=== PATIENT | female | born 1955 | race Caucasian/White ===

== ENCOUNTER 2019-02-23 14:38 | Outpatient (CLI) | payer MEDICARE, BC, SELFPAY ==
--- NOTE | 2019-02-23 14:51 | XR_ITS ---
WS: [id number] LATERAL CERVICAL SPINE: 3 view. Lateral radiographs are performed in upright neutral, flexion and extension to the patient's toleranc e. HISTORY: CERVICALGIA COMPARISON: None available. Normal cervical alignment. Moderate disc space narrowing at C4-5, C5-6 and C6-7. Moderate size osteop hytes extend anterior and posterior from C4 through C7. With flexion and extension there is no instab ility. Less than 2 mm retrolisthesis during extension of C5. Largest osteophyte extends posteriorly b y 3.8 mm from C4. XR/XR cervical spine fl/ex [id number] IMPRESSION: 1. Moderate spondylosis from C4 through C7. 2. No flexion or extension instability.
== END 2019-02-23 14:39 | disposition home or self-care (01) ==
LOC: RADWPI 14:44
PROVIDERS: Family Provider Family Medicine; PCP Family Medicine; Referring Provider Family Medicine; Visit Provider Nurse Practitioner
DX: M47.892 Other spondylosis, cervical region (principal); M54.2 Cervicalgia
CPT/HCPCS: 72040

== ENCOUNTER → 2019-03-09 10:10 | Outpatient (BNVA) | payer MEDICARE, BC, SELFPAY | PROVIDERS: Family Provider Family Medicine; PCP Family Medicine; Visit Provider Family Medicine | DX: E03.9 Hypothyroidism, unspecified (principal) | CPT/HCPCS: 84443 ==

== ENCOUNTER → 2019-03-31 13:52 | Outpatient (BNVA) | payer MEDICARE, BC, SELFPAY | PROVIDERS: Family Provider Family Medicine; PCP Family Medicine; Referring Provider Licensed Practical Nurse; Visit Provider Psychiatry & Neurology Neurology | DX: M54.2 Cervicalgia (principal); M79.601 Pain in right arm; M79.602 Pain in left arm; Z87.891 Personal history of nicotine dependence | CPT/HCPCS: 95886; 95910 ==

== ENCOUNTER 2019-04-14 09:41 | Outpatient (CLI) | payer MEDICARE, BC, SELFPAY ==
--- NOTE | 2019-04-14 10:00 | CT_ITS ---
WS: [id number] CT HEAD TECHNIQUE: Noncontrast CT of the head obtained from the skullbase to the vertex. CLINICAL INFORMATION: Nodule COMPARISON: None. DLP: 1058.[address] scans at [facility] use at least one of these dose optimization techniques: automat ed exposure control; mA and/or kV adjustment per patient size (includes targeted exams where dose is matched to clinical indication); or iterative reconstruction. FINDINGS: In the area of palpable concern, posterior to the left ear, there is a small subcutaneous f ocus of calcification measuring 3.8 mm which is well-circumscribed and has a benign appearance. No ot her suspicious abnormalities in this area. No evidence of intracranial hemorrhage or mass effect. Ventricular system and basal cisterns are perry nt. Mild small vessel changes with mild parenchymal volume loss. No extra-axial fluid collections. No evidence of mass or mass effect. Normal cross-white differentiation. Paranasal sinuses and mastoid air cells are well aerated. .Normal visualized soft tissues. CT/CT head wo con* [id number] IMPRESSION: 1. No evidence of intracranial hemorrhage or mass effect. 2. Mild small vessel changes with mild parenchymal volume loss. 3. Paranasal sinuses and mastoid air cells are well aerated. 4. Small 3.8 mm incidental focus of calcification in the area of palpable conc michelle posterior to the left ear.
--- NOTE | 2019-04-14 10:00 | IR_ITS ---
WS: [id number] MYELOGRAM CERVICAL SPINE Fluoroscopic guided cervical myelogram CLINICAL INFORMATION: Neck pain COMPARISON: None. TECHNIQUE: The procedure, including risks, benefits, and complications, were discussed with the patie nt who agreed to proceed. A timeout was performed to confirm correct patient, procedure, and site. Using sterile technique, the patient was prepped and draped in the usual sterile fashion. After admin istration of local anesthesia using 1% preservative-free lidocaine and using fluoroscopic guidance, a 22-gauge spinal needle was advanced into the subarachnoid space at the L4-5 level. Subsequently 13 c c of Omnipaque 300 was administered into the thecal sac. The needle was removed and hemostasis was ac hieved. Subsequently the table was tilted down and contrast flowed freely into the cervical spine. Sp ot fluoroscopic images were obtained. FLUOROSCOPIC TIME: 0.6 minutes. Spot fluoroscopic images demonstrate straightening of the normal cervical lordosis. Mild disc space n arrowing C4-C5 C5-C6 and C6-C7. Normal C1-C2 articulation. No instability on flexion-extension. Mild hypertrophic changes at C4-C6. Please see CT myelogram report for additional detail. IR/IR myelogram [place] cervical [id number] IMPRESSION: 1. Uncomplicated cervical myelogram. 2. Mild spondylitic changes worse at C4-C6. 3. No instability on flexion extension.
[2019-04-14] MEDS: iohexol 300 mg/mL 50 mL Btl INTRATHECA (11:05)
--- NOTE | 2019-04-14 11:30 | CT_ITS ---
WS: [id number] CT CERVICAL MYELOGRAM TECHNIQUE: CT of the cervical spine coronal and sagittal reformatted images post intrathecal administ ration of contrast. CLINICAL INFORMATION: Neck pain. Limited ROM COMPARISON: MRI February 23, 2019 DLP: [id number] scans at [facility] use at least one of these dose optimization techniques: automat ed exposure control; mA and/or kV adjustment per patient size (includes targeted exams where dose is matched to clinical indication); or iterative reconstruction. FINDINGS: Mild spondylitic changes cervical spine. Straightening of the normal cervical lordosis. Disc osteophy te complexes worse at C4-C6. C2-C3: Mild right and no significant left foraminal narrowing. Spinal canal is patent. C3-C4: Mild disc osteophyte ridging. Mild right and no significant left foraminal narrowing. Mild fac et arthropathy. Spinal canal is patent. C4-C5: Disc osteophyte complex with endplate ridging. Mild central canal stenosis. Moderate left grea ter than right bony foraminal narrowing. C5-C6: Disc osteophyte complex with endplate ridging. Mild central canal stenosis. Moderate bilateral bony foraminal narrowing. C6-C7: Disc osteophyte complex with endplate ridging. Mild central canal stenosis. Moderate to severe bilateral bony foraminal narrowing. C7-T1: Mild left bony foraminal narrowing. Right foramen is patent. Spinal canal is patent. Mastoid air cells well aerated. CT/CT cervical spine w con [id number] IMPRESSION: 1. Straightening of the normal cervical lordosis. Mild spondylitic changes. 2. Mild central canal stenosis C4-C5 C5-C6 and C6-C7 due to disc osteophyte co mplexes with slight effacement of ventral thecal sac. 3. Multilevel bony foraminal narrowing worse at left C4-C5, bilateral C5-C6, a nd bilateral C6-7. This is moderate to severe at C6-7. 4. Mild left C7-T1 bony foraminal narrowing.
== END 2019-04-14 09:42 | disposition home or self-care (01) ==
LOC: RADWPI 09:46
PROVIDERS: Family Provider Family Medicine; PCP Family Medicine; Visit Provider Licensed Practical Nurse
DX: M50.020 Cervical disc disorder with myelopathy, mid-cervical region, unspecified level (principal); R22.9 Localized swelling, mass and lump, unspecified; M54.2 Cervicalgia; M48.02 Spinal stenosis, cervical region; M47.892 Other spondylosis, cervical region
CPT/HCPCS: 62302; 70450; 72040; 72126; J2001

== ENCOUNTER → 2019-05-04 12:12 | Outpatient (BNVA) | payer MEDICARE, BC, SELFPAY | PROVIDERS: Family Provider Family Medicine; PCP Family Medicine; Visit Provider Family Medicine | DX: E03.9 Hypothyroidism, unspecified (principal) | CPT/HCPCS: 84439; 84443 ==

== ENCOUNTER 2019-05-06 08:33 | Outpatient (CLI) | payer MEDICARE, BC, SELFPAY ==
--- NOTE | 2019-05-06 08:41 | NM_ITS ---
WS: [id number] NUCLEAR MEDICINE WHOLE BODY BONE SCAN HISTORY: Suspicious skull lesions. Suboccipital skull irregularities COMPARISON: 04/14/[address] TECHNIQUE: The patient was injected with 25.6 mCi of Technetium 99m HDP and serial whole-body scintig eloina have been performed with anterior and posterior images. Large cstqn-ey-yflf imaging over the sku ll. Normal uptake within the skull. Mild hyperostosis frontalis involving the frontal bone. The tiny calc ific densities in the soft tissues posterior to the LEFT occipital bone are not positive. Mild increased uptake in the RIGHT T9 facet joint from arthritis. Bilateral AC joint and glenohumeral joint arthritis. Mild arthritis at the knees and ankles. There is normal soft tissue uptake in the r enal outline. NM/NM bone scan whole body* [id number] IMPRESSION: 1. No metastatic disease. 2. No abnormality noted in the suboccipital region.
== END 2019-05-06 08:34 | disposition home or self-care (01) ==
LOC: RAD 08:38
PROVIDERS: Family Provider Family Medicine; PCP Family Medicine; Visit Provider Licensed Practical Nurse
DX: M89.9 Disorder of bone, unspecified (principal)
CPT/HCPCS: 78306; A9561

== ENCOUNTER → 2019-08-31 10:56 | Outpatient (BNVA) | payer MEDICARE, BC, SELFPAY | PROVIDERS: Family Provider Family Medicine; PCP Family Medicine; Visit Provider Family Medicine | DX: E03.9 Hypothyroidism, unspecified (principal) | CPT/HCPCS: 84443 ==

== ENCOUNTER 2019-09-13 14:21 | Outpatient (CLI) | payer MEDICARE, BC, SELFPAY ==
--- NOTE | 2019-09-13 14:30 | MM_ITS ---
WS: [id number] BILATERAL SCREENING DIGITAL MAMMOGRAM WITH CAD HISTORY: SCREENING COMPARISON: 07/20/2018 and 06/29/2017 Bilateral CC and MLO views submitted. Computer aided detection analyzed. Breast composition: There are scattered areas of fibroglandular density. No suspicious masses, microc alcifications or architectural distortion. MM/[place] [id number] IMPRESSION: BI-RADS: 1-Negative FOLLOW UP: 1 Year Follow-up
== END 2019-09-13 14:22 | disposition home or self-care (01) ==
LOC: RADSHAW 14:24
PROVIDERS: PCP Family Medicine; Visit Provider Family Medicine
DX: Z12.31 Encounter for screening mammogram for malignant neoplasm of breast (principal)
CPT/HCPCS: 77067

== ENCOUNTER → 2019-10-05 11:02 | Outpatient (BNVA) | payer MEDICARE, BC, SELFPAY | PROVIDERS: PCP Family Medicine; Visit Provider Urology | DX: N39.0 Urinary tract infection, site not specified (principal) | CPT/HCPCS: 81001 ==

== ENCOUNTER → 2019-10-26 08:47 | Outpatient (BNVA) | payer MEDICARE, BC, SELFPAY | PROVIDERS: PCP Family Medicine; Referring Provider Family Medicine; Visit Provider Dermatology | DX: L21.9 Seborrheic dermatitis, unspecified (principal); L82.1 Other seborrheic keratosis; L81.4 Other melanin hyperpigmentation; D22.9 Melanocytic nevi, unspecified; L57.0 Actinic keratosis; N39.0 Urinary tract infection, site not specified | CPT/HCPCS: 17000; 17003; 99203; 99204 ==

== ENCOUNTER → 2019-11-29 09:06 | Outpatient (BNVA) | payer MEDICARE, BC, SELFPAY | PROVIDERS: PCP Family Medicine; Visit Provider Family Medicine | DX: E78.5 Hyperlipidemia, unspecified (principal); G25.0 Essential tremor | CPT/HCPCS: 80053; 80061; 85025 ==

== ENCOUNTER 2019-12-20 20:00 | Outpatient (CLI) | payer MEDICARE, BC, SELFPAY | END 2019-12-20 20:01 | disposition home or self-care (01) | LOC: SLEEP 12-21 09:19 | PROVIDERS: PCP Family Medicine; Visit Provider Family Medicine | DX: G47.33 Obstructive sleep apnea (adult) (pediatric) (principal) | CPT/HCPCS: 95810 ==

== ENCOUNTER 2020-01-19 20:00 | Outpatient (CLI) | payer MEDICARE, BC, SELFPAY | END 2020-01-19 20:01 | disposition home or self-care (01) | LOC: SLEEP 01-20 10:03 | PROVIDERS: PCP Family Medicine; Visit Provider Family Medicine | DX: G47.33 Obstructive sleep apnea (adult) (pediatric) (principal) | CPT/HCPCS: 95811 ==

== ENCOUNTER → 2020-02-25 10:43 | Outpatient (BNVA) | payer MEDICARE, BC, SELFPAY | PROVIDERS: PCP Family Medicine; Visit Provider Nurse Practitioner Family | DX: Z20.828 Contact with and (suspected) exposure to other viral communicable diseases (principal); J06.9 Acute upper respiratory infection, unspecified | CPT/HCPCS: 87635 ==

== ENCOUNTER 2020-04-28 15:31 | Outpatient (CLI) | payer MEDICARE, BC, SELFPAY ==
--- NOTE | 2020-04-28 16:02 | MR_ITS ---
WS: [id number] MRI CERVICAL SPINE NONCONTRAST TECHNIQUE: Sagittal T1, T2 and STIR imaging. Axial T2, gradient, and fiesta imaging. CLINICAL INFORMATION: C-SPINE STENOSIS COMPARISON: CT myelogram April 14, 2019 FINDINGS: Straightening of the normal cervical lordosis. Cord signal is normal. Moderate spondylitic changes ce rvical spine. Cord signal is normal. C2-C3: Mild right and no significant left foraminal narrowing. Spinal canal is patent. C3-C4: Mild disc osteophytic ridging. Mild facet arthropathy. Tiny central protrusion. Mild right gre ater than left foraminal narrowing. Mild facet arthropathy. C4-C5: Disc osteophyte complex with endplate ridging. Mild to moderate central canal stenosis. Modera te to severe left and mild right bony foraminal narrowing. Mild facet arthropathy. C5-C6: Disc osteophyte complex with endplate ridging. Mild to moderate central canal stenosis. Modera te to severe bilateral left greater than right foraminal narrowing. Moderate facet arthropathy. C6-C7: Disc osteophyte complex with endplate ridging. Slight contact of the cervical cord with modera te central canal stenosis. Severe bilateral bony foraminal narrowing left greater than right. Uncover tebral joint hypertrophy. C7-T1: No significant disc bulging. Mild left and no right foraminal narrowing. Spinal canal is perry nt. Findings are not significantly changed since the prior myelogram MR/MR cervical spin wo con* [id number] IMPRESSION: 1. Straightening of the normal cervical lordosis with moderate spondylitic lópez nges. Cord signal is normal. 2. Mild to moderate central canal stenosis due to disc osteophyte protrusions at C4-C5, C5-C6, C6-C7 with slight indentation on the cervical cord at these le vels. 3. Moderate to severe bony foraminal narrowing worse at left C4-C5, bilateral C5-C6 worse in the left, and left C6-7 4. Mild left C7-T1 bony foraminal narrowing.
== END 2020-04-28 15:32 | disposition home or self-care (01) ==
LOC: RADSHAW 15:37
PROVIDERS: PCP Family Medicine; Visit Provider Anesthesiology Pain Medicine
DX: M48.02 Spinal stenosis, cervical region (principal); M25.78 Osteophyte, vertebrae; E03.9 Hypothyroidism, unspecified; E78.5 Hyperlipidemia, unspecified; Z83.3 Family history of diabetes mellitus
CPT/HCPCS: 72141; 80053; 80061; 83036; 84443

== ENCOUNTER 2020-05-19 14:56 | Emergency (ER) | payer MEDICARE, BC, SELFPAY ==
[2020-05-19 15:00] VITALS: BP 163/85; PULSE 104; RESP 18; TEMP 36.4; O2SAT 96; BMI 28.5
[2020-05-19 15:12] VITALS: BP 163/85; PULSE 106; RESP 18; O2SAT 96
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
--- NOTE | 2020-05-19 15:29 | XR_ITS ---
WS: [id number] Left knee, 3 views, 05/19/2020 Clinical Data: pain Comparison: None. Findings: No fractures or dislocations are seen. There is joint space narrowing of the medial and lateral joint compartments. There is spurring of the patella. The patella is intact. The soft tissues are unremark able. XR/XR knee LT 3V* [id number] Impression: Osteoarthritis of all the joint compartments of the left knee.
[2020-05-19 15:42] VITALS: BP 143/81; PULSE 74; RESP 18; O2SAT 97
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
--- NOTE | 2020-05-19 16:00 | XR_ITS ---
WS: [id number] Left arm and humerus, 2 views, 05/19/2020 Clinical Data: pain Comparison: None. Findings: No fractures or dislocations are seen. The shaft of the humerus is intact. XR/[place] [id number] Impression: Negative left arm and humerus.
[2020-05-19] MEDS: iohexol 300 mg/mL 100 mL Btl IV (16:10)
[2020-05-19 16:34] LABS: Basophils % 0.4 %; Eosinophils # 0.1 10^3/uL (0.0-0.8); Eosinophils % 0.6 %; Hematocrit 44.5 % (37.0-47.0); Hemoglobin 14.3 g/dL (11.5-15.3); Lymphocytes # 1.7 10^3/uL (0.8-4.8); Lymphocytes % 21.1 %; Mean Corpuscular HGB Conc 32.1 g/dL (30.0-36.0); Mean Corpuscular Hemoglobin 29.7 pg (28.0-34.0); Mean Corpuscular Volume 92.3 fL (81-99); Mean Platelet Volume 10.7 fL (7.4-10.4); Monocytes # 0.7 10^3/uL (0.2-0.9); Monocytes % 8.7 %; Neutrophils # 5.57 10^3/uL (1.8-7.7); Neutrophils % 68.8 %; Nucleated Red Blood Cells % 0 %; Platelet Count 215 10^3/cmm (130-400); Red Blood Count 4.82 10^6/uL (4.1-5.3); Red Cell Distribution Width 13.7 % (12.1-15.1); White Blood Count 8.1 10^3/uL (4.0-10.0)
[2020-05-19 17:18] LABS: Alanine Aminotransferase 23 U/L (0-33); Albumin Level 3.9 g/dL (3.5-5.2); Alkaline Phosphatase 100 IU/L (35-105); Anion Gap 13.3 (5-19); Aspartate Amino Transferase 19 U/L (0-32); Blood Urea Nitrogen 18 mg/dL (8-23); Calcium 8.3 mg/dL (8.5-10.5); Carbon Dioxide 24 mmol/L (22-29); Chloride 105 mmol/L (98-107); Globulin 2.1 g/dL (1.3-4.6); Glucose 95 mg/dL (65-115); Osmolality Calculated 288 mOsm/kg (285-295); Potassium 4.3 mmol/L (3.5-5.1); Sodium 138 mmol/L (136-145); Total Bilirubin 0.4 mg/dL (0.15-1.2)
[2020-05-19 17:19] LABS: Add Urine Microscopic? NO; Charge for UA Resulting for Rev
[2020-05-19 17:28] LABS: Bilirubin Urine Neg (Negative); Blood Urine Neg (Negative); Glucose Urine UA Norm (Normal); Ketones Urine 1+ (Negative); Leukocyte Esterase Urine Negative (Negative); Nitrate Urine Negative (Negative); Protein Urine Neg (Negative); Specific Gravity, Urine 1.015 (1.005-1.030); Urine Appearance Clear (CLEAR); Urine Color Yellow (Yellow); Urobilinogen Urine Norm (Negative); pH Urine 5 (5-7)
[2020-05-19 17:43] VITALS: BP 143/81; PULSE 104; RESP 18; O2SAT 96
== END 2020-05-19 17:45 | disposition home or self-care (01) ==
PROVIDERS: Emergency Provider Family Medicine; PCP Family Medicine
DX: M79.10 Myalgia, unspecified site (principal); V89.2XXA Person injured in unspecified motor-vehicle accident, traffic, initial encounter; W22.12XA Striking against or struck by front passenger side automobile airbag, initial encounter; Z87.891 Personal history of nicotine dependence
CPT/HCPCS: 70450; 71260; 72125; 73060; 73562; 74177; 80053; 81003; 85025; 99284; Q9967

== ENCOUNTER 2020-06-15 06:00 | Outpatient (RCR) | payer MEDICARE, BC, SELFPAY | END 2020-07-10 23:59 | disposition home or self-care (01) | LOC: SPT 06:00 | PROVIDERS: PCP Family Medicine; Referring Provider Anesthesiology Pain Medicine; Visit Provider Anesthesiology Pain Medicine | DX: M47.812 Spondylosis without myelopathy or radiculopathy, cervical region (principal); M43.12 Spondylolisthesis, cervical region; M79.12 Myalgia of auxiliary muscles, head and neck; M48.02 Spinal stenosis, cervical region; M50.10 Cervical disc disorder with radiculopathy, unspecified cervical region; M54.2 Cervicalgia | CPT/HCPCS: 73630; 97032; 97110; 97161 ==

== ENCOUNTER → 2020-06-26 14:54 | Outpatient (BNVA) | payer MEDICARE, BC, SELFPAY | PROVIDERS: PCP Family Medicine; Visit Provider Family Medicine | DX: E03.9 Hypothyroidism, unspecified (principal); M54.5 Low back pain | CPT/HCPCS: 84443 ==

== ENCOUNTER → 2020-07-19 13:47 | Outpatient (BNVA) | payer MEDICARE, BC, SELFPAY | PROVIDERS: PCP Family Medicine; Visit Provider Family Medicine | DX: E03.9 Hypothyroidism, unspecified (principal) | CPT/HCPCS: 84439; 84443 ==

== ENCOUNTER 2020-08-22 08:31 | Outpatient (CLI) | payer MEDICARE, BC, SELFPAY ==
--- NOTE | 2020-08-22 08:37 | XRR_ITS ---
PROCEDURE INFORMATION: Exam: XR Abdomen Exam date and time: 08/22/2020 8:37 AM Age: 65 years old Clinical indication: Abdominal pain; Flank; Right; Additional info: Flank pain TECHNIQUE: Imaging protocol: XR of the abdomen. Views: Frontal supine view of the abdomen. 1 View. COMPARISON: CT chest abd pel w con* 05/19/2020 4:16 PM FINDINGS: Gastrointestinal tract: Normal. No bowel dilation. Organs: Clips are present from cholecystectomy. There is a surgical clip in the right side of the pelvis. Multiple phleboliths are present in the pelvis. No renal stones are seen. Bones/joints: Chronic degenerative changes are present in the spine with sclerosis and small osteophytes. Bones/joints: Unremarkable. XR/XR KUB [id number] IMPRESSION: 1. No acute abnormality. 2. 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
== END 2020-08-22 08:32 | disposition home or self-care (01) ==
PROVIDERS: PCP Family Medicine; Visit Provider Urology
DX: R10.9 Unspecified abdominal pain (principal); M19.90 Unspecified osteoarthritis, unspecified site
CPT/HCPCS: 74018; 81003

== ENCOUNTER 2020-10-18 10:43 | Outpatient (CLI) | payer MEDICARE, BC, SELFPAY ==
--- NOTE | 2020-10-18 10:53 | MM_ITS ---
WS: [id number] BILATERAL DIGITAL SCREENING MAMMOGRAPHY WITH CAD CLINICAL INFORMATION: SCREENING HISTORY: Screening mammogram. No current complaints. COMPARISON: September 13, 2019 TECHNIQUE: Bilateral CC and MLO views. FINDINGS: Scattered fibroglandular densities bilaterally. No suspicious focal mass, asymmetry, calcifications, or architectural distortion. No evidence of malignancy. MM/[place] [id number] IMPRESSION: BI-RADS: 1-Negative FOLLOW UP: 1 Year Follow-up Recommend return to annual screening mammography.
== END 2020-10-18 10:44 | disposition home or self-care (01) ==
LOC: RADSHAW 10:48
PROVIDERS: PCP Family Medicine; Visit Provider Family Medicine
DX: Z12.31 Encounter for screening mammogram for malignant neoplasm of breast (principal)
CPT/HCPCS: 77067

== ENCOUNTER → 2020-11-03 10:50 | Outpatient (BNVA) | payer MEDICARE, BC, SELFPAY | PROVIDERS: PCP Family Medicine; Visit Provider Family Medicine | DX: E03.9 Hypothyroidism, unspecified (principal); K29.70 Gastritis, unspecified, without bleeding; R93.3 Abnormal findings on diagnostic imaging of other parts of digestive tract | CPT/HCPCS: 84439; 84443 ==

== ENCOUNTER → 2020-11-16 10:35 | Outpatient (BNVA) | payer MEDICARE, BC, SELFPAY | PROVIDERS: PCP Family Medicine; Referring Provider Family Medicine; Visit Provider Surgery | DX: K29.70 Gastritis, unspecified, without bleeding (principal); Z86.010 Personal history of colon polyps; R93.3 Abnormal findings on diagnostic imaging of other parts of digestive tract; Z20.822 Contact with and (suspected) exposure to COVID-19 | CPT/HCPCS: 87635 ==

== ENCOUNTER 2020-11-22 05:51 | Day surgery (SDC) | payer MEDICARE, BC, SELFPAY ==
[2020-11-20 09:53] VITALS: BMI 29.2
[2020-11-22 06:07] VITALS: BP 158/77; PULSE 72; RESP 16; TEMP 36.1; O2SAT 95
--- NOTE | 2020-11-22 06:18 | W.PM.OPSUD ---
Surgery/Procedure H&P Update DATE OF PROCEDURE: November 22, 2020 DATE H&P PERFORMED: 11/16/20 H&P UPDATE INFORMATION: I have reviewed H&P completed within last 30 days, I have examined patient prior to procedure and No changes to prior documentation PREOP DIAGNOSIS: Epigastric pain and history of colon polyps PRIMARY INDICATION FOR PROCEDURE: The same PLANNED PROCEDURE: Operation Date: 11/22/20 07:00 Proposed Procedures p EGD/Colon 82433 K29.70(Not Applicable) - Sudheer Roach MD s Colonoscopy 20190 Z86.010(Not Applicable) - Sudheer Roach MD
[2020-11-22] MEDS: sodium chloride 0.9% 1,000 ML 30 ML IV (06:21)
--- NOTE | 2020-11-22 06:44 | ANES.PREANE2 ---
Pre-Anesthetic Assessment Pre-Anesthetic Assessment: Height/Weight: Height 1.8 m Weight 95.254 kg Temp Pulse Resp BP Pulse Ox 97 F L 72 16 158/77 95 11/22/20 06:07 11/22/20 06:07 11/22/20 06:07 11/22/20 06:07 11/22/20 06:07 Preop Diagnosis: Epigastric pain and history of colon polyps Proposed Procedure: Operation Date: 11/22/20 07:00 Proposed Procedures p EGD/Colon 70314 K29.70(Not Applicable) - Sudheer Roach MD s Colonoscopy 55240 Z86.010(Not Applicable) - Sudheer Roach MD Was Beta Penny taken within 24 hours: N/A Last intake: Intake Last Liquid Date 11/21/20 Last Liquid Time 20:00 Last Solid Date 11/20/20 Last Solid Time 18:00 Social: Social History: Alcohol and No tobacco Exam: Pre-Anes Outpt Exam: alert, oriented x 3 and clear to auscultation bilaterally Airway: Submandibular: WNL Cervical ROM: Other MP: 2 Dentition: Full History/ROS: No significant history except as noted Pulmonary: Pulmonary: Sleep apnea CV/HEM: CV/HEM: Arrythmia (PVCs) : : None reported Hepatic: Hepatic: None reported GI: GI: GERD Metabolic: Metabolic: Thyroid Musc/skel: Musc/skel: Lower Back Pain Neuropsych: Neuropsych: Anxiety Anesthetic Plan: ASA status: 2 Risk of > 500 ml blood loss (7ml/kg in children): No Meds/Allergies Current Medications: Current Medications Generic Name Dose Route Start Last Admin Trade Name Freq PRN Reason Stop Dose Admin Sodium Chloride 1,000 mls @ 30 ml s/hr 11/22/20 06:00 11/22/20 06:21 Sodium Chloride 0.9% IV 30 mls/hr .Q24H PAIGE Administration PFSH Anesthesia PFSH: Medical History Cervical disc disorder with myelopathy of mid-cervical region History of cataract bilateral Mass KRISTIAN (obstructive sleep apnea) Recurrent UTI Skull lesion Spinal stenosis, cervical region Spondylolisthesis of cervical region Stenosis of cervical spine with myelopathy Surgical History History of appendectomy History of cholecystectomy performed in [place], [place] History of hernia repair 2x History of knee surgery History of laminectomy L5-S1 decompression performed in [place], [place] 1991 and [facility] 1989 Family History Father Heart disease Mother Diabetes Sister Polymyositis Diabetes Brother Heart disease Social History Alcohol intake: current Alcohol intake frequency: holidays/special occasions only Household members: spouse Marital status: Current occupational status: retired History of recent travel: No Data Anesthesia Cardiac Studies: No Data to Display
[2020-11-22 07:27] VITALS: BP 126/84; PULSE 65; RESP 16; TEMP 36.2; O2SAT 96
[2020-11-22 07:38] LABS: Glucose Point of Care 172 mg/dL (70-110)
[2020-11-22 07:41] VITALS: BP 131/75; PULSE 61; RESP 16; O2SAT 96
--- NOTE | 2020-11-22 08:48 | ANE.PACU2 ---
Inpatient post-anesthesia follow up: Airway intact: Yes Vital signs: Temperature 97.2 F Pulse Rate 61 Respiratory Rate 16 Blood Pressure 131/75 Pulse Oximetry 96 Oxygen Delivery Me thod Room Air Oxygen Flow Rate Fraction of Inspir ed Oxygen Hydration adequate: Yes Nausea and vomiting: No Mental status: Baseline
[2020-11-23 11:23] LABS: H. Pylori / CLO Test Negative
== END 2020-11-22 08:05 | disposition home or self-care (01) ==
PROVIDERS: PCP Family Medicine; Visit Provider Surgery
PROC: 0DJ08ZZ Inspection of Upper Intestinal Tract, Via Natural or Artificial Opening Endoscopic (ICD-10-PCS; CPT 43235; principal; 2020-11-22 07:00)
PROC: 0DJD8ZZ Inspection of Lower Intestinal Tract, Via Natural or Artificial Opening Endoscopic (ICD-10-PCS; CPT 45378; 2020-11-22 07:00)
DX: R10.13 Epigastric pain (principal); K29.70 Gastritis, unspecified, without bleeding; Z86.010 Personal history of colon polyps; G47.33 Obstructive sleep apnea (adult) (pediatric); K21.00 Gastro-esophageal reflux disease with esophagitis, without bleeding; F41.9 Anxiety disorder, unspecified; Z82.49 Family history of ischemic heart disease and other diseases of the circulatory system; Z83.3 Family history of diabetes mellitus
CPT/HCPCS: 36416; 43239; 45378; 82962; 87077; 96360; 96361; J2704; J7030

== ENCOUNTER → 2021-01-11 09:39 | Outpatient (BNVA) | payer MEDICARE, BC, SELFPAY | PROVIDERS: PCP Family Medicine; Visit Provider Nurse Practitioner Family | DX: Z20.822 Contact with and (suspected) exposure to COVID-19 (principal) | CPT/HCPCS: 87635 ==

== ENCOUNTER → 2021-04-17 09:14 | Outpatient (BNVA) | payer MEDICARE, BC, SELFPAY | PROVIDERS: PCP Family Medicine; Visit Provider Orthopaedic Surgery | DX: M54.2 Cervicalgia (principal); M47.892 Other spondylosis, cervical region | CPT/HCPCS: 72050 ==

== ENCOUNTER → 2021-04-25 10:58 | Outpatient (BNVA) | payer MEDICARE, BC, SELFPAY | PROVIDERS: PCP Family Medicine; Visit Provider Internal Medicine Gastroenterology | DX: Z01.812 Encounter for preprocedural laboratory examination (principal); Z20.822 Contact with and (suspected) exposure to COVID-19 | CPT/HCPCS: 87635 ==

== ENCOUNTER 2021-05-03 06:00 | Outpatient (RCR) | payer MEDICARE, BC, SELFPAY | END 2021-05-10 23:59 | disposition home or self-care (01) | LOC: SPT 06:00 | PROVIDERS: PCP Family Medicine; Referring Provider Orthopaedic Surgery; Visit Provider Orthopaedic Surgery | DX: M54.2 Cervicalgia (principal); G89.29 Other chronic pain | CPT/HCPCS: 80053; 80061; 82306; 82607; 84439; 84443; 85025; 97110; 97161 ==

== ENCOUNTER → 2021-05-03 09:25 | Outpatient (BNVA) | payer MEDICARE, BC, SELFPAY | PROVIDERS: PCP Family Medicine; Visit Provider Family Medicine | DX: Z13.6 Encounter for screening for cardiovascular disorders (principal); E03.9 Hypothyroidism, unspecified; M89.9 Disorder of bone, unspecified; M47.22 Other spondylosis with radiculopathy, cervical region; Z86.39 Personal history of other endocrine, nutritional and metabolic disease; E53.8 Deficiency of other specified B group vitamins; M50.00 Cervical disc disorder with myelopathy, unspecified cervical region; Z83.49 Family history of other endocrine, nutritional and metabolic diseases; K21.9 Gastro-esophageal reflux disease without esophagitis | CPT/HCPCS: 80053; 80061; 82306; 82607; 84439; 84443; 85025 ==

== ENCOUNTER 2021-05-11 06:00 | Outpatient (RCR) | payer MEDICARE, BC, SELFPAY | END 2021-06-09 23:59 | disposition home or self-care (01) | LOC: SPT 06:00 | PROVIDERS: PCP Family Medicine; Referring Provider Orthopaedic Surgery; Visit Provider Orthopaedic Surgery | DX: M54.2 Cervicalgia (principal) | CPT/HCPCS: 97110; 97530 ==

== ENCOUNTER 2021-06-10 | Outpatient (RCR) | payer OTHER, MEDICARE, BC, SELFPAY | END 2021-07-10 23:59 | disposition home or self-care (01) | LOC: SPT | PROVIDERS: PCP Family Medicine; Referring Provider Orthopaedic Surgery; Visit Provider Orthopaedic Surgery | DX: G89.29 Other chronic pain (principal); M54.2 Cervicalgia | CPT/HCPCS: 97110 ==

== ENCOUNTER → 2021-07-05 09:06 | Outpatient (BNVA) | payer MEDICARE, BC, SELFPAY | PROVIDERS: PCP Family Medicine; Visit Provider Family Medicine | DX: F41.9 Anxiety disorder, unspecified (principal); E78.5 Hyperlipidemia, unspecified | CPT/HCPCS: 80053 ==

== ENCOUNTER 2021-07-11 06:00 | Outpatient (RCR) | payer MEDICARE, BC, SELFPAY | END 2021-08-09 16:20 | disposition home or self-care (01) | LOC: SPT 06:00 | PROVIDERS: PCP Family Medicine; Referring Provider Orthopaedic Surgery; Visit Provider Orthopaedic Surgery | DX: G89.29 Other chronic pain (principal); M54.2 Cervicalgia; M25.511 Pain in right shoulder; M54.50 Low back pain, unspecified | CPT/HCPCS: 97110 ==

== ENCOUNTER → 2021-07-24 13:30 | Outpatient (BNVA) | payer MEDICARE, BC, SELFPAY | PROVIDERS: PCP Family Medicine; Visit Provider Orthopaedic Surgery | DX: M48.062 Spinal stenosis, lumbar region with neurogenic claudication (principal); M25.511 Pain in right shoulder; M25.551 Pain in right hip; M47.9 Spondylosis, unspecified | CPT/HCPCS: 72100; 73502; 99214 ==

== ENCOUNTER → 2021-10-04 09:43 | Outpatient (BNVA) | payer MEDICARE, BC, SELFPAY | PROVIDERS: PCP Family Medicine; Visit Provider Family Medicine | DX: Z78.0 Asymptomatic menopausal state (principal); Z13.6 Encounter for screening for cardiovascular disorders; Z00.00 Encounter for general adult medical examination without abnormal findings; Z12.31 Encounter for screening mammogram for malignant neoplasm of breast | CPT/HCPCS: 80061 ==

== ENCOUNTER → 2021-10-30 12:51 | Outpatient (BNVA) | payer MEDICARE, BC, SELFPAY | PROVIDERS: PCP Family Medicine; Referring Provider Dermatology; Visit Provider Podiatrist Foot & Ankle Surgery | DX: M21.621 Bunionette of right foot (principal); M77.41 Metatarsalgia, right foot; L84 Corns and callosities | CPT/HCPCS: 99203 ==

== ENCOUNTER → 2021-11-01 10:25 | Outpatient (BNVA) | payer MEDICARE, BC, SELFPAY | PROVIDERS: PCP Family Medicine; Visit Provider Family Medicine | DX: E89.0 Postprocedural hypothyroidism (principal); E66.9 Obesity, unspecified | CPT/HCPCS: 84439; 84443 ==

== ENCOUNTER 2021-12-18 14:02 | Outpatient (CLI) | payer MEDICARE, BC, SELFPAY ==
--- NOTE | 2021-12-18 14:15 | MM_ITS ---
WS: [id number] BILATERAL 3D TOMOSYNTHESIS DIGITAL SCREENING MAMMOGRAPHY WITH CAD CLINICAL INFORMATION: screening mammogram HISTORY: Screening mammogram. No current complaints. COMPARISON: 2020 TECHNIQUE: Bilateral CC and MLO views. FINDINGS: Scattered fibroglandular densities bilaterally. No suspicious focal mass, asymmetry, calcifications, or architectural distortion. No evidence of malignancy. Vascular calcification. A few incidental punc yates calcifications. MM/[place] [id number] IMPRESSION: BI-RADS: 2-Benign FOLLOW UP: 1 Year Follow-up Recommend return to annual screening mammography.
--- NOTE | 2021-12-18 14:30 | XR_ITS ---
WS: [id number] SCREENING DEXA SCAN [employer] CLINICAL INFORMATION: post-menopausal COMPARISON: None. FINDINGS: The L1-L4 bone mineral density measures 1.413 g/cm2. This corresponds to a T score score of 1.9 and Z score of 2.6. Left femoral neck bone mineral density measures 0.610 g/cm2. This corresponds to a T score of -3.2 an d Z score of -2.5. Right femoral neck bone mineral density measures 0.723 g/cm2. This corresponds to a T score -2.3of an d Z score of -1.6. Mean femoral neck bone mineral density measures 0.667 g/cm2. This corresponds to a T score of -2.7 an d Z score of -2.1. XR/XR DEXA axial skeleton* [id number] IMPRESSION: Normal bone mineralization lumbar spine. Osteoporosis femoral necks. Patient's FRAX calculated 10 year probability for major osteoporotic fracture i s 26.8 % and osteoporotic hip fracture is 12.5%.
== END 2021-12-18 14:03 | disposition home or self-care (01) ==
PROVIDERS: PCP Family Medicine; Visit Provider Family Medicine
DX: Z12.31 Encounter for screening mammogram for malignant neoplasm of breast (principal); Z78.0 Asymptomatic menopausal state; M81.0 Age-related osteoporosis without current pathological fracture
CPT/HCPCS: 77063; 77067; 77080

== ENCOUNTER → 2022-01-22 06:54 | Outpatient (BNVA) | payer MEDICARE, BC, SELFPAY | PROVIDERS: PCP Family Medicine; Visit Provider Student in an Organized Health Care Education/Training Program | DX: R22.32 Localized swelling, mass and lump, left upper limb (principal) | CPT/HCPCS: 73140; 99203 ==

== ENCOUNTER 2022-02-26 13:21 | Outpatient (CLI) | payer MEDICARE, BC, SELFPAY ==
--- NOTE | 2022-02-26 13:45 | MR_ITS ---
WS: [id number] MRI OF THE LEFT HAND WITHOUT AND WITH GADOLINIUM ENHANCEMENT. INDICATION: Pain swelling index finger TECHNIQUE: Coronal T1, coronal STIR, axial T1, axial T2, postgadolinium imaging obtained with fat sat uration technique. FINDINGS: Some images degraded by motion artifact. Patient could not tolerate additional imaging. Palpable marker overlying the dorsal middle phalanx 2nd finger. Underlying subcutaneous soft tissue t hickening with fluid and edema. Normal bone marrow signal in the underlying middle phalanx. Images de graded by motion artifact in this area. No evidence of osteomyelitis. No significant joint effusion. No other suspicious findings. MR/MR hand LT wo/w con [id number] IMPRESSION: Limited diagnostic examination due to small area of interest and mo tion artifact. 1. Palpable marker overlying the 2nd dorsal middle phalanx. Associated subcuta neous edema with soft tissue thickening in the underlying soft tissues deep to the palpable marker. This is difficult to further characterize due to imaging l imitations. 2. Normal bone marrow signal in the 2nd middle phalanx. No evidence of osteomy elitis. If persistent symptoms, this can be further evaluated with CT for santa r anatomic detail. 3. No other suspicious findings.
[2022-02-26] MEDS: gadobenate dimeglumine 20 mL vial IV (14:35)
== END 2022-02-26 13:22 | disposition home or self-care (01) ==
LOC: RAD 13:22
PROVIDERS: PCP Family Medicine; Visit Provider Student in an Organized Health Care Education/Training Program
DX: R22.32 Localized swelling, mass and lump, left upper limb (principal)
CPT/HCPCS: 73220; A9577

== ENCOUNTER 2022-03-26 12:55 | Oncology outpatient (recurring) (ONCR) | payer MEDICARE, BC, SELFPAY ==
[2022-03-26] MEDS: denosumab 60 mg SDV SUBCUT (13:42)
== END 2022-04-09 23:59 | disposition home or self-care (01) ==
PROVIDERS: PCP Family Medicine; Visit Provider Family Medicine
DX: M81.0 Age-related osteoporosis without current pathological fracture (principal); Z79.899 Other long term (current) drug therapy
CPT/HCPCS: 96372; J0897

== ENCOUNTER → 2022-04-03 10:04 | Outpatient (BNVA) | payer MEDICARE, BC, SELFPAY | PROVIDERS: PCP Family Medicine; Visit Provider Student in an Organized Health Care Education/Training Program | DX: R22.32 Localized swelling, mass and lump, left upper limb (principal) | CPT/HCPCS: 99214 ==

== ENCOUNTER → 2022-04-23 11:43 | Outpatient (BNVA) | payer MEDICARE, BC, SELFPAY | PROVIDERS: PCP Family Medicine; Visit Provider Family Medicine | DX: E78.5 Hyperlipidemia, unspecified (principal); R73.03 Prediabetes; E89.0 Postprocedural hypothyroidism; Z13.6 Encounter for screening for cardiovascular disorders | CPT/HCPCS: 80053; 80061; 83036; 84443; 85025 ==

== ENCOUNTER 2022-06-11 05:46 | Day surgery (SDC) | payer MEDICARE, BC, SELFPAY ==
[2022-06-10 12:27] VITALS: BMI 27.1
[2022-06-11] VITALS (8 sets, daily range): BP systolic 112–157; BP diastolic 56–93; PULSE 69–80; RESP 12–18; TEMP 36.2–36.4; O2SAT 96–99
[2022-06-11] MEDS: acetaminophen 1,000 MG/100 ML PIGGYBACK 400 MG IV (06:19)
[2022-06-11] MEDS: ketorolac 30 mg/mL INJ IVP (06:19)
[2022-06-11] MEDS: sodium chloride 0.9% 1,000 ML 30 ML IV (06:20)
--- NOTE | 2022-06-11 06:33 | P.ANESASSM_ITS ---
Pre-Anesthetic Assessment Height/Weight: Height 1.8 m Weight 88.451 kg Temp Pulse Resp BP Pulse Ox O2 Del Method 97.5 F L 80 18 130/77 96 Room Air 06/11/22 06:26 06/11/22 06:26 06/11/22 06:26 06/11/22 06:26 06/11/22 06:26 06/11/22 06:26 Preop Diagnosis: Left index finger mass Operation Date: 06/11/22 07:00 Proposed Procedures p Left index finger mass [id number](Left) - Phillip Phelps, Familial anesthetic complications: None Was Beta Penny taken within 24 hours: N/A Was Clonidine taken within 24 hours: N/A Last intake: Intake Last Liquid Date 06/10/22 Last Liquid Time 21:30 Last Solid Date 06/10/22 Last Solid Time 18:00 Social No alcohol and No tobacco Exam alert, oriented x 3, clear to auscultation bilaterally and regular rate & rhythm Airway Submandibular: within normal limits Cervical ROM: within normal limits Mallampati: Class II Dentition: full History/ROS No significant history except as noted and No significant complaints Pulmonary Sleep Apnea CV/HEM Arrythmia (PVCs) Urinary Tract Infection Hepatic None reported GI Gastroesophageal Reflux Disease (Controlled with meds, no symptoms this morning) Metabolic Hyperlipidemia and Thyroid Disease Musc/skel Lower Back Pain and Osteoarthritis/DJD Neuropsych None reported Anesthetic Plan ASA status: 3 Anesthesia: Anesthesia Evaluation, General and MAC Risk of > 500 ml blood loss (7ml/kg in children): No Medications/Allergies Home Medications Medication Instructions Recorded Confirmed Last Taken Type acetaminophen 650 mg 650 mg PO Q8H PRN Pain 03/23/19 06/11/22 1 Day Ago History tablet,extended release (Tylenol ~06/10/22 Arthritis Pain) oxygen-air delivery systems 08/28/21 04/23/22 Unknown History semaglutide 1 mg/dose (4 mg/3 mL) 1 mg (0.75 mL) SUBCUT .weekly 90 01/08/22 06/11/22 1 Day Ago Rx subcutaneous pen injector days #3 mL ~06/10/22 omeprazole 40 mg capsule,delayed See Rx Instructions .Route 01/10/22 06/11/22 1 Week Ago Rx release .COMPLEX #180 caps ~06/04/22 denosumab 60 mg/mL subcutaneous 60 mg SUBCUT .every 6 months #1 mL 03/20/22 06/11/22 03/26/22 Rx syringe (Prolia) levothyroxine 125 mcg tablet See Rx Instructions .Route 04/24/22 06/10/22 06/10/22 Rx .COMPLEX #90 tabs rosuvastatin 5 mg tablet See Rx Instructions .Route 04/25/22 06/10/22 06/10/22 Rx .COMPLEX #90 tabs Allergies Allergy/AdvReac Type Severity Reaction Status Date / Time triclosan Allergy Severe Swelling Verified 06/11/22 06:12 cefuroxime Allergy rash Verified 06/11/22 06:12 hydrocodone [From Lortab] Allergy rash Verified 06/11/22 06:12 nitrofurantoin Allergy rash Verified 06/11/22 06:12 sulfamethoxazole Allergy rash Verified 06/11/22 06:12 [From Bactrim] trimethoprim [From Bactrim] Allergy rash Verified 06/11/22 06:12 codeine AdvReac pt feels Verified 06/11/22 06:12 scared, paranoid, states she feels very anxious Sulfa (Sulfonamide AdvReac other Verified 06/11/22 06:12 Antibiotics) Current Medications Generic Name Dose Route Start Last Admin Trade Name Freq PRN Reason Stop Dose Admin Sodium Chloride 1,000 mls @ 30 mls/hr 06/11/22 06:00 06/11/22 06:20 Sodium Chloride 0.9% IV 06/12/22 05:59 30 mls/hr .Q24H PAIGE Administration PFSH Anesthesia Medical History Cervical disc disorder with myelopathy of mid-cervical region History of cataract bilateral Mass Mass of left finger KRISTIAN (obstructive sleep apnea) Recurrent UTI Skull lesion Spinal stenosis, cervical region Spondylolisthesis of cervical region Stenosis of cervical spine with myelopathy Surgical History History of appendectomy History of cholecystectomy performed in [place], [place] History of colonoscopy with polypectomy 2014 History of esophagogastroduodenoscopy (EGD) 2019 History of hernia repair 2x History of hysterectomy 1993 History of knee surgery History of laminectomy L5-S1 decompression performed in [place], [place] 1991 and [facility] 1989 History of thyroidectomy 2017 Family History Father Heart disease Mother Diabetes Sister Polymyositis Diabetes Brother Heart disease Social History Smoking and tobacco status: former smoker Alcohol intake: current Alcohol intake frequency: holidays/special occasions only Substance/Drug Use: never Household members: spouse Marital status: Current occupational status: retired Data Anesthesia Cardiac Studies: No Data to Display
--- NOTE | 2022-06-11 06:55 | P.HP_ITS ---
Same Day Surgery H&P Indication for Procedure/HPI DATE OF PROCEDURE: June 11, 2022 CHIEF COMPLAINT/INDICATIONFOR SURGICAL PROCEDURE: Left index finger mass with persistent pain PREOP DIAGNOSIS: Left index finger mass PLANNED PROCEDURE: Operation Date: 06/11/22 07:00 Proposed Procedures p Left index finger mass [id number](Left) - Phillip Phelps DO Medications/Allergies* Home Medications Medication Instructions Recorded Confirmed Type acetaminophen 650 mg 650 mg PO Q8H PRN Pain 03/23/19 06/11/22 History tablet,extended release (Tylenol Arthritis Pain) oxygen-air delivery systems 08/28/21 04/23/22 History Allergies/Adverse Reactions Allergy/AdvReac Type Severity Reaction Status Date / Time triclosan Allergy Severe Swelling Verified 06/11/22 06:12 cefuroxime Allergy rash Verified 06/11/22 06:12 hydrocodone [From Lortab] Allergy rash Verified 06/11/22 06:12 nitrofurantoin Allergy rash Verified 06/11/22 06:12 sulfamethoxazole Allergy rash Verified 06/11/22 06:12 [From Bactrim] trimethoprim [From Bactrim] Allergy rash Verified 06/11/22 06:12 codeine AdvReac pt feels Verified 06/11/22 06:12 scared, paranoid, states she feels very anxious Sulfa (Sulfonamide AdvReac other Verified 06/11/22 06:12 Antibiotics) Current Medications: Generic Name Dose Route Start Last Admin Trade Name Freq PRN Reason Stop Dose Admin Sodium Chloride 1,000 mls @ 30 mls/hr 06/11/22 06:00 06/11/22 06:20 Sodium Chloride 0.9% IV 06/12/22 05:59 30 mls/hr .Q24H PAIGE Administration Pertinent History/Comorbid Conditions* Medical History (Updated 04/23/22 @ 11:24 by Martha Law DO) Cervical disc disorder with myelopathy of mid-cervical region History of cataract bilateral Mass Mass of left finger KRISTIAN (obstructive sleep apnea) Recurrent UTI Skull lesion Spinal stenosis, cervical region Spondylolisthesis of cervical region Stenosis of cervical spine with myelopathy Surgical History (Updated 12/20/20 @ 10:45 by Johanna Pulliam DO) History of appendectomy History of cholecystectomy performed in [place], [place] History of colonoscopy with polypectomy 2015 History of esophagogastroduodenoscopy (EGD) 2019 History of hernia repair 2x History of hysterectomy 1993 History of knee surgery History of laminectomy L5-S1 decompression performed in [place], [place] 1991 and [facility] 1989 History of thyroidectomy 2017 Family History (Updated 03/24/19 @ 08:22 by Kary Awad LPN) Polymyositis Sister Diabetes Mother Sister Heart disease Father Brother Social History Smoking and tobacco status: former smoker Alcohol intake: current Alcohol intake frequency: holidays/special occasions only Substance/Drug Use: never Household members: spouse Marital status: Current occupational status: retired Pertinent Exam Findings alert, operative site marked and procedure specific exam findings Examination of patient's left hand demonstrates no tenderness to palpation at the wrist.? Patient does have a oblong soft mobile mass and compressible over the middle phalanx of the left index finger over the dorsal aspect of the finger.? It had has mild tenderness to palpation proximally.? This does not appear to be involvement with the PIP, originally did not appear to involve the DIP joint but does appear now to have extended near and around the DIP joint when patient flexes her index finger.? No change in her nail plate.? No erythema or infection related.? This is once again mobile and soft there is a bluish hue to the mass in color.? Patient starting to note some stiffness in the DIP and PIP joint of the left index finger.? She still is able to make a fist. ? Sensation tact light touch distally.? When placing patient's finger into cold water this does appear to be hypersensitive. Recommendations Surgery/Procedure today Other Plans: Discussed treatment options as far as nonoperative and operative invention at this point time she understands risk benefits complication alternatives surgical nonsurgical treatment options. Understanding risk of surgery she agrees to proceed with surgical intervention of a left index finger mass excision. All questions answered. Coding Level of Care Code Acute Code for Chg Fwd Diagnoses
[2022-06-11] MEDS: clindamycin 600 MG/50 ML PREMIX 100 MG IV (06:58)
[2022-06-11] MEDS: lidocaine-epi 1% 20 mL INJ INJECTION (07:19)
[2022-06-11] MEDS: sodium bicarbonate 4.2% 0.5 mEq/mL SDV 5mL 1 MEQ INTRADERMA (07:19)
--- NOTE | 2022-06-11 07:52 | P.OP_ITS ---
Operative Report Date of procedure: June 11, 2022 Pre-op diagnosis: Preop Diagnosis Left index finger mass Post-op diagnosis: Left index finger mass (venous malformation) Procedure done: Left index finger mass excision (2 cm x 0.4 cm x 0.2 cm) Specimens removed/disposition: Left index finger mass removed and sent for pathology Pathology: Left index finger mass removed and sent for pathology Surgeon: Phillip Phelps DO Anesthesia: MAC (Local) Estimated blood loss: 2 cc 13 minutes IV fluids: See anesthesia record Complications: None Findings: See operative report narrative Condition: stable Disposition: same day Brief History: Patient is a 67-year-old female who presents today with a left index finger mass. She has been seen and worked up in the outpatient setting. This point time her mass is continued to cause her significant pain does have an element of cold insensitivity. Given that this caused her persistent pain and she is had this going on for quite some time through shared decision making she like to proceed with surgical intervention of the left index finger mass excision. We talked about the risk benefits complication alternatives with surgery nonsurgic al treatment options. Understanding risk of surgery she agrees to proceed with surgical intervention all questions answered. Procedure: Patient seen evaluate in the preoperative holding area. Consent was reviewed and signed with patient. Correct extremity and digit was then marked. Patient was then seen and evaluated by anesthesia once cleared for surgery she was taken back to the operative suite she was then transported onto the OR table in supine position all bony prominences well-padded patient was appropriate secured to the bed. Armboard was applied to the left upper extremity. A tourniquet nonsterile was then applied to the left upper arm. Patient then underwent appropriate anesthesia per the anesthesia department once appropriately anesthetized the left upper extremity was then prepped and draped in standard orthopedic fashion. Final timeout performed. Patient received appropriate preoperative antibiotics. Esmarch tourniquet was used exsanguinate the left upper extremity and tourniquet was insufflated to 250 mmHg. Patient's left index finger mass excision was then identified this was directly centered over the middle phalanx on the dorsal aspect of the finger I demonstrate longitudinal over the mass as well as curved around the PIP joint sharp scalpel incision was made strictly through skin. Next I switched to L ittler dissection scissors and created full-thickness flaps. I then came down directly over the identifiable mass this appeared to have multiple communicating vessels as well as 1 main vessel with this being severely enlarged this appeared to have a form venous malformation. At this point in time I mobilized around the mass with Littler dissection scissors as well as scalpel staying care to protect the extensor tendon mechanism. The mass was identified and found to be directly on the extensor tendon but not adhered to it. This point time I mobilized both proximally distally as well as radially and ulnarly. Once I identified the main vessel I then truncated the communicating vessels with bipolar electrocautery and then slowly elevated and dissected underneath the mass off of the extensor mechanism. This tunneled this distally all the way to the main communicating venous malformation. This was right above the nail matrix. At this point in time I then utilized bipolar electrocautery to excise the mass distally which completed my dissection the mass was removed placed in a pathology specimen cup and then was sent for pathology. At this point in time I then identified all communicating bleeders that were coagulated and once again utilized a bipolar electrocautery to maintain exact hemostasis. There is no communication into the joint or extensor tendon. At this point in time tourniquet was deflated thoroughly irrigated the wound bed. Hemostasis was satisfactory with bipolar electrocautery. I then closed the incision with interrupted nylon suture. A bulky soft dressing was then subsequently applied to the left index finger. Patient was then awakened from anesthesia and taken to PACU in stable condition. Disposition: Patient taken back in stable condition recovering well. Pain controlled. She received appropriate discharge structure as well as pain medication postoperatively. We will have her follow-up with me in the office in 2 weeks for incision check as well as to review her path results. Patient understands agrees with current plan. All questions answered.
--- NOTE | 2022-06-11 07:52 | PM.OP2 ---
Brief Operative Note Date of procedure: 06/11/22 Pre-op diagnosis: Left index finger mass Post-op diagnosis: same (Left index finger mass venous malformation) Procedure Done: Left index finger mass excision (2 cm x 0.4cm x 0.2cm) Surgeon: Phillip Phelps Estimated blood loss (mL): 2 Complications: None Post-op Plan: Patient taken to PACU in stable condition recovering well. Pain controlled. Will receive appropriate discharge structure as well as pain medication postoperatively. We will follow along with path results. Patient to follow-up in the office in 2 weeks. Understands and agrees with current plan. All questions answered. Condition: stable Disposition: same day Coding Level of Care Code Acute Code for Chg Jorge
--- NOTE | 2022-06-11 07:52 | PM.PACU ---
PACU note Narrative: Dressing on in place clean dry and intact in PACU. Patient prior to dressing being applied fingertip warm well-perfused brisk capillary refill less than 2 seconds. Decreased sensation secondary to local anesthesia. Exam: awake Disposition: discharged
--- NOTE | 2022-06-11 08:07 | PC.NURSE ---
Awake alert. good circulatory refill left hand. ice for comfort
--- NOTE | 2022-06-11 13:59 | ANE.PACU2 ---
Inpatient post-anesthesia follow up: Airway intact: Yes Vital signs: Temperature 97.5 F Pulse Rate 70 Respiratory Rate 18 Blood Pressure 133/93 Pulse Oximetry 99 Oxygen Delivery Me thod Room Air Oxygen Flow Rate Fraction of Inspir ed Oxygen Hydration adequate: Yes Nausea and vomiting: No Pain level: 1 Mental status: Baseline
== END 2022-06-11 08:37 | disposition home or self-care (01) ==
PROVIDERS: PCP Family Medicine; Visit Provider Student in an Organized Health Care Education/Training Program
PROC: (CPT 26116; principal; 2022-06-11 07:00)
DX: D18.01 Hemangioma of skin and subcutaneous tissue (principal); E78.5 Hyperlipidemia, unspecified; G47.33 Obstructive sleep apnea (adult) (pediatric); Z87.891 Personal history of nicotine dependence; Z88.2 Allergy status to sulfonamides
CPT/HCPCS: 26116; 88307; J0131; J1885; J2704; J3010; J3490; J7030

== ENCOUNTER → 2022-06-24 15:44 | Outpatient (BNVA) | payer MEDICARE, BC, SELFPAY | PROVIDERS: PCP Family Medicine; Visit Provider Student in an Organized Health Care Education/Training Program | DX: R22.32 Localized swelling, mass and lump, left upper limb (principal) | CPT/HCPCS: 99024 ==

== ENCOUNTER 2022-09-26 13:26 | Oncology outpatient (recurring) (ONCR) | payer MEDICARE, BC, SELFPAY ==
[2022-09-26 14:26] VITALS: BP 134/63; PULSE 86; RESP 16; TEMP 36.3; O2SAT 99
[2022-09-26] MEDS: denosumab 60 mg SDV SUBCUT (14:29)
== END 2022-10-10 23:59 | disposition home or self-care (01) ==
PROVIDERS: PCP Family Medicine; Visit Provider Family Medicine
DX: M81.0 Age-related osteoporosis without current pathological fracture (principal)
CPT/HCPCS: 96401; J0897

== ENCOUNTER → 2022-10-15 09:33 | Outpatient (BNVA) | payer MEDICARE, BC, SELFPAY | PROVIDERS: PCP Family Medicine; Visit Provider Family Medicine | DX: Z00.00 Encounter for general adult medical examination without abnormal findings (principal); Z13.6 Encounter for screening for cardiovascular disorders; E89.0 Postprocedural hypothyroidism; Z12.31 Encounter for screening mammogram for malignant neoplasm of breast; F41.9 Anxiety disorder, unspecified | CPT/HCPCS: 80053; 84439; 84443 ==

== ENCOUNTER → 2022-11-14 14:24 | Outpatient (BNVA) | payer MEDICARE, BC, SELFPAY | PROVIDERS: PCP Family Medicine; Visit Provider Dermatology | DX: L81.4 Other melanin hyperpigmentation (principal); L82.0 Inflamed seborrheic keratosis; D18.01 Hemangioma of skin and subcutaneous tissue; L30.0 Nummular dermatitis | CPT/HCPCS: 17110; 99214 ==

== ENCOUNTER 2022-12-20 08:46 | Outpatient (CLI) | payer MEDICARE, BC, SELFPAY ==
--- NOTE | 2022-12-20 08:52 | MM_ITS ---
WS: [id number] SCREENING DIGITAL TOMOSYNTHESIS MAMMOGRAM WITH CAD HISTORY: screeening mammogram COMPARISON: 12/18/2021 and 10/18/2020 Bilateral CC and MLO with tomosynthesis views submitted. Synthetic mammography reviewed. Computer aid ed detection analyzed. Breast composition: There are scattered areas of fibroglandular density. No suspicious masses, microc alcifications or architectural distortion. IMPRESSION: MM/[place] [id number] BI-RADS: 1-Negative FOLLOW UP: 1 Year Follow-up
== END 2022-12-20 08:47 | disposition home or self-care (01) ==
LOC: RAD 08:47
PROVIDERS: PCP Family Medicine; Visit Provider Family Medicine
DX: Z12.31 Encounter for screening mammogram for malignant neoplasm of breast (principal)
CPT/HCPCS: 77063; 77067

== ENCOUNTER 2023-04-25 09:00 | Oncology outpatient (recurring) (ONCR) | payer MEDICARE, BC, SELFPAY ==
[2023-04-25] MEDS: denosumab 60 mg SDV SUBCUT (09:42)
== END 2023-05-11 23:59 | disposition home or self-care (01) ==
LOC: ONCMED 09:01
PROVIDERS: PCP Family Medicine; Visit Provider Family Medicine
DX: M81.0 Age-related osteoporosis without current pathological fracture (principal)
CPT/HCPCS: 96372; J0897

== ENCOUNTER → 2023-06-03 13:50 | Outpatient (BNVA) | payer MEDICARE, BC, SELFPAY | PROVIDERS: PCP Family Medicine; Visit Provider Family Medicine | DX: E89.0 Postprocedural hypothyroidism (principal); E66.3 Overweight | CPT/HCPCS: 84439; 84443 ==

== ENCOUNTER 2023-07-21 10:51 | Emergency (ER) | payer MEDICARE, BC, SELFPAY ==
[2023-07-21] VITALS (8 sets, daily range): BP systolic 125–148; BP diastolic 78–88; PULSE 71–82; RESP 16–17; TEMP 36.7; O2SAT 96–99
--- NOTE | 2023-07-21 12:06 | ED_ITS ---
HPI - Abdominal Pain 2 General: Chief Complaint: Abdominal Pain Stated Complaint: abd pain Time Seen by Provider: 07/21/23 11:44 Source: patient Mode of arrival: ambulatory Limitations: no limitations History of Present Illness: Patient is a 68 year old female who presents to the ED today with a complaint of LUQ abdominal pain x 2 days. Patient complains of nausea, indigestion, and dizziness. Has been on Ozempic since Oct 2021 for weight loss and was switched to Victoza 1 month ago (due to insurance not covering the Ozempic) with last injection being on Friday. She was reportedly at and sent to the ED for further evaluation with concerns for pancreatitis. She reported during that visit, bowel changes over the past week with yellow/mucous/soft stools. MD elicited complaint: abdominal pain Pertinent past history: none Onset (ago): day(s) Pain Consistency: constant Location: LUQ Radiation: none Migration to: no migration Exacerbating factors: movement Relieving factors: nothing Associated Symptoms: Reports nausea; Denies chills, diarrhea, dysuria, fever(s), heartburn, hematemesis, syncope and vomiting Related Data: Patient : No Review of Systems 2 Const: Denies: fever(s), chills, body aches, fatigue or malaise Eyes: Denies: change in vision or blurry vision Card: Denies: chest pain, palpitations, irregular heart rhythm, lightheadedness, syncope or dyspnea on exertion Resp: Denies: dyspnea, productive cough or pain on inspiration GI: Reports: abdominal pain and nausea; Denies: vomiting, hematemesis, heartburn or diarrhea : Denies: flank pain, difficulty voiding, dysuria, urinary frequency, urinary urgency or urinary hesitancy Musc: Denies: neck pain, back pain, extremity pain, extremity swelling or joint pain Skin/Breast: Denies: rash Neuro: Reports: dizziness; Denies: headache(s), numbness in extremities, weakness in extremities or sensory changes PFSH ED 2 PFSH: Medical History Mass of left finger Spinal stenosis, cervical region KRISTIAN (obstructive sleep apnea) Recurrent UTI History of cataract bilateral Spondylolisthesis of cervical region Skull lesion Mass Stenosis of cervical spine with myelopathy Cervical disc disorder with myelopathy of mid-cervical region Surgical History History of colonoscopy with polypectomy 2015 History of esophagogastroduodenoscopy (EGD) 2019 History of thyroidectomy 2017 History of hysterectomy 1993 History of hernia repair 2x History of appendectomy History of cholecystectomy performed in [place], [place] History of laminectomy L5-S1 decompression performed in [place], [place] 1991 and [facility] 1989 History of knee surgery Family History Father Heart disease Mother Diabetes Sister Polymyositis Diabetes Brother Heart disease Social History Smoking and tobacco/nicotine status: former use of tobacco/nicotine Alcohol intake: current Alcohol intake frequency: holidays/special occasions only Substance/Drug Use: never Household members: spouse Marital status: Current occupational status: retired Physical Exam 2 Const: COMMON NORMALS: no acute distress, average body habitus, patient oriented x3, no limitations, healthy appearing, alert and well nourished Chest: COMMONS NORMALS: normal inspection of the chest and normal palpation of entire chest wall Resp: COMMON NORMALS: normal respiratory effort and clear to auscultation bilaterally AUSCULTATION: clear to auscultation bilaterally Cardio: COMMON NORMALS: regular rate and regular rhythm RATE: regular rate RHYTHM: regular rhythm GI: COMMON NORMALS: Normal to inspection, nondistended, normoactive bowel sounds present, Soft to palpation, No hepatosplenomegaly present and no masses INSPECTION: Yes normal to inspection AUSCULTATION: Yes normoactive bowel sounds PALPATION: Yes Soft to palpation, Yes Tenderness to palpation present (GI) Details: LUQ, No Guarding due to palpation present (GI), No Rigid due to palpation and Yes No hepatosplenomegaly present : COMMON NORMALS: Yes no CVA tenderness BLADDER/KIDNEY EXAM: Yes no CVA tenderness Back/Pelvis: COMMON NORMALS: no CVA tenderness and thoracic and lumbar spine normal to inspection Extremity: GENERAL: Yes normal exam except as noted Neuro: GRAEME COMA SCALE: document GCS findings Strandquist coma scale eye opening: Spontaneous Strandquist coma scale verbal response: Orientated Graeme coma scale motor response: Obey commands Graeme coma scale total score: 15 COMMON NORMALS: patient oriented x3, moves all extremities, no focal motor deficits and no sensory deficits noted SENSORIUM/ORIENTATION: Yes alert Skin: COMMON NORMALS: no rashes or lesions noted GENERAL SKIN EXAM: no rashes or lesions noted Course 2 Vital Signs: Vital signs: Vital Signs Temperature 98.1 F 07/21/23 11:09 Pulse Rate 74 07/21/23 14:00 Respiratory Rate 16 07/21/23 15:00 Blood Pressure 125/84 07/21/23 15:00 Pulse Oximetry 99 07/21/23 15:00 Oxygen Delivery Me thod Room Air 07/21/23 14:30 MDM - Abdominal Pain Medical Decision Making Patient is a very nice 68-year-old female presents to ED today with complaint of left upper abdominal pain over the past 2 days. Her concern is pancreatitis as she recently switched from Ozempic to Victoza. Her pain is easily reproducible with movement as well as palpation to her left upper quadrant. Her vital signs are stable upon arrival. Blood work overall is unremarkable. Her lipase is normal. UA is clear. CT scan showing no acute pathology. She did have a large amount of colonic stool as well as chronic adnexal cysts. EKG obtained and normal as well. At this time I feel patient is stable for discharge from an emergency standpoint. Recommend follow-up with her primary care provider later this week. Return ED precautions given. Differential Diagnosis Likely abdominal pain, constipation and pancreatitis Medical Records I reviewed the patient's medical records. Lab Data I reviewed the patient's lab results. 07/21/23 12:38 07/21/23 12:38 Labs/Radiology: Radiology Impressions Abdomen/Pelvis CT 07/21/23 13:18 IMPRESSION: 1. No acute pathology. 2. Large amount of colonic stool. 3. Bilateral adnexal cysts again noted, unchanged on the right but increased on the left. Ultrasound recommended for more detailed assessment. 4. Minor findings as above. Laboratory Results WBC 7.41 10^3/uL (3.29-11.43) 07/21/23 12:38 RBC 5.16 10^6/uL (3.85-5.65) 07/21/23 12:38 Hgb 15.80 g/dL (11.27-16.99) 07/21/23 12:38 Hct 46.6 % (36-47) 07/21/23 12:38 MCV 90.3 fl (85-98) 07/21/23 12:38 MCH 30.6 pg (27-33) 07/21/23 12:38 MCHC 33.9 g/dL (30-55) 07/21/23 12:38 RDW 13.6 % (12.1-15.1) 07/21/23 12:38 Plt Count 238 10^3/cmm (157-399) 07/21/23 12:38 MPV 10.5 fL (7.4-10.4) H 07/21/23 12:38 Neut % (Auto) 55.6 % 07/21/23 12:38 Lymph % (Auto) 35.0 % 07/21/23 12:38 [place] % (Auto) 7.7 % 07/21/23 12:38 Eos % (Auto) 1.1 % 07/21/23 12:38 Baso % (Auto) 0.5 % 07/21/23 12:38 Neut # (Auto) 4.12 10^3/uL (1.8-7.7) 07/21/23 12:38 Lymph # (Auto) 2.6 10^3/uL (0.8-4.8) 07/21/23 12:38 [place] # (Auto) 0.6 10^3/uL (0.2-0.9) 07/21/23 12:38 Eos # (Auto) 0.1 10^3/uL (0.0-0.8) 07/21/23 12:38 Baso # (Auto) 0.0 10^3/uL (0.0-0.1) 07/21/23 12:38 Nucleated RBC % (auto) 0 % 07/21/23 12:38 Nucleated RBCs # 0.0 /100WBC 07/21/23 12:38 Sodium 142 mmol/L (136-145) 07/21/23 12:38 Potassium 4.2 mmol/L (3.5-5.1) 07/21/23 12:38 Chloride 104 mmol/L (98-107) 07/21/23 12:38 Carbon Dioxide 26 mmol/L (22-29) 07/21/23 12:38 Anion Gap 16.2 (5-19) 07/21/23 12:38 BUN 14 mg/dL (8-23) 07/21/23 12:38 Creatinine 0.6 mg/dL (0.5-0.9) 07/21/23 12:38 GFR Calculation 99.1 mL/min (90-130) 07/21/23 12:38 Glucose 84 mg/dL (65-115) 07/21/23 12:38 Calculated Osmolality 294 mOsm/kg (285-295) 07/21/23 12:38 Calcium 9.6 mg/dL (8.5-10.5) 07/21/23 12:38 Total Bilirubin 0.4 mg/dL (0.15-1.2) 07/21/23 12:38 AST 15 U/L (0-32) 07/21/23 12:38 ALT 14 U/L (0-33) 07/21/23 12:38 Alkaline Phosphatase 37 U/L (35-105) 07/21/23 12:38 C-Reactive Protein 3.0 mg/L (0.0-4.9) 07/21/23 12:38 Total Protein 7.3 g/dL (6.6-8.7) 07/21/23 12:38 Albumin 4.6 g/dL (3.5-5.2) 07/21/23 12:38 Globulin 2.7 g/dL (1.3-4.6) 07/21/23 12:38 Lipase 23 U/L (13-60) 07/21/23 12:38 Urine Color Yellow (Yellow) 07/21/23 12:35 Urine Appearance Clear (CLEAR) 07/21/23 12:35 Urine pH 5 (5-7) 07/21/23 12:35 Ur Specific [place] 1.015 (1.005-1.030) 07/21/23 12:35 Urine Protein Neg (Negative) 07/21/23 12:35 Urine Glucose (UA) Norm (Normal) 07/21/23 12:35 Urine Ketones Negative (Negative) 07/21/23 12:35 Urine Blood Neg (Negative) 07/21/23 12:35 Urine Nitrate Negative (Negative) 07/21/23 12:35 Urine Bilirubin Neg (Negative) 07/21/23 12:35 Urine Urobilinogen Neg mg/dL (Negative) 07/21/23 12:35 Ur Leukocyte Esterase Negative (Negative) 07/21/23 12:35 All radiology interpretation(s) finalized by discharge Discharge Plan Discharge Patient Disposition: Home Clinical Impression: Abdominal pain, acute, left upper quadrant Condition: Stable Prescriptions: No Action acetaminophen [Tylenol Arthritis Pain] 650 mg tablet extended release 650 mg PO Q8H PRN (Reason: Pain) (DME) oxygen-air delivery systems Device See Rx Instructions .Route Rx Instructions: As directed Victoza 3-Marvin 0.6 mg/0.1 mL (18 mg/3 mL) pen injector 1.8 mg SUBCUT Q24H Qty: 9 1RF Prolia 60 mg/mL syringe 60 mg SUBCUT .every 6 months Qty: 1 1RF levothyroxine [Synthroid] 125 mcg tablet 125 mcg PO DAILY Qty: 90 0RF omeprazole 40 mg capsule,delayed release(DR/EC) 40 mg PO DAILY rosuvastatin 5 mg tablet 5 mg PO DAILY Discharge Orders: Discharge ED (Routine); Ordered 07/21/23 Ordered By: Mercedes Talbert Referrals: Martha Law DO [Primary Care Provider] - Patient Instructions: Abdominal Pain (ED) Coding Level of Care Code ED Lay Out Drafter for Ana Patel
[2023-07-21 12:45] LABS: Basophils % 0.5 %; Eosinophils # 0.1 10^3/uL (0.0-0.8); Eosinophils % 1.1 %; Hematocrit 46.6 % (36-47); Lymphocytes # 2.6 10^3/uL (0.8-4.8); Mean Corpuscular HGB Conc 33.9 g/dL (30-55); Mean Corpuscular Hemoglobin 30.6 pg (27-33); Mean Corpuscular Volume 90.3 fl (85-98); Mean Platelet Volume 10.5 fL (7.4-10.4); Monocytes # 0.6 10^3/uL (0.2-0.9); Monocytes % 7.7 %; Neutrophils # 4.12 10^3/uL (1.8-7.7); Neutrophils % 55.6 %; Nucleated Red Blood Cells % 0 %; Platelet Count 238 10^3/cmm (157-399); Red Blood Count 5.16 10^6/uL (3.85-5.65); Red Cell Distribution Width 13.6 % (12.1-15.1); White Blood Count 7.41 10^3/uL (3.29-11.43)
[2023-07-21 13:04] LABS: Alanine Aminotransferase 14 U/L (0-33); Albumin Level 4.6 g/dL (3.5-5.2); Alkaline Phosphatase 37 U/L (35-105); Anion Gap 16.2 (5-19); Aspartate Amino Transferase 15 U/L (0-32); Blood Urea Nitrogen 14 mg/dL (8-23); Calcium 9.6 mg/dL (8.5-10.5); Carbon Dioxide 26 mmol/L (22-29); Chloride 104 mmol/L (98-107); Creatinine Clr Calc Pharmacy 82.9083; Globulin 2.7 g/dL (1.3-4.6); Glomerular Filtration Rate 99.1 mL/min (90-130); Glucose 84 mg/dL (65-115); Lipase 23 U/L (13-60); Osmolality Calculated 294 mOsm/kg (285-295); Potassium 4.2 mmol/L (3.5-5.1); Sodium 142 mmol/L (136-145); Total Bilirubin 0.4 mg/dL (0.15-1.2); Total Protein 7.3 g/dL (6.6-8.7)
[2023-07-21 13:11] LABS: Add Urine Microscopic? NO; Charge for UA Resulting for Rev
--- NOTE | 2023-07-21 13:18 | CTR_ITS ---
PROCEDURE INFORMATION: Exam: CT Abdomen And Pelvis With Contrast Exam date and time: 07/21/2023 2:15 PM Age: 68 years old Clinical indication: Abdominal pain; Localized; Left upper quadrant (luq); Prior surgery; Surgery date: 6+ months; Surgery type: Gb, appy, hernia; Additional info: Luq pain TECHNIQUE: Imaging protocol: Computed tomography of the abdomen and pelvis with contrast. Radiation optimization: All CT scans at this facility use at least one of these dose optimization techniques: automated exposure control; mA and/or kV adjustment per patient size (includes targeted exams where dose is matched to clinical indication); or iterative reconstruction. Contrast material: OMNI 350; Contrast volume: 100 ml; Contrast route: INTRAVENOUS (IV); COMPARISON: CT chest abdpel w/*[id number] 05/19/2020 4:16 PM RADIATION DOSE METRICS: Total DLP (mGy-cm): 923.5 FINDINGS: Lungs: Stable 3 mm left lower lobe nodule on series 4, image 20 consistent with benign pathology. No further follow-up required per Fleischner criteria. Mild basilar scar versus atelectasis. Liver: No significant liver pathology. Gallbladder and bile ducts: Prior cholecystectomy. No biliary dilatation. Pancreas: No significant pancreatic pathology. Spleen: No significant splenic pathology. Adrenal glands: No significant adrenal pathology. Kidneys and ureters: No significant renal pathology. Stomach and bowel: Large amount of colonic stool. Appendix: Prior appendectomy. Intraperitoneal space: No ascites. Vasculature: No abdominal aortic aneurysm. Lymph nodes: No evidence of lymphadenopathy. Urinary bladder: Unremarkable urinary bladder. Reproductive: Prior hysterectomy. Bilateral adnexal cysts are again noted measuring 4 x 3.1 cm on the right and 4.4 x 3.2 cm on the left mural thickening of the right-sided cyst is again noted. Right-sided cyst is unchanged in size. The left-sided cyst is slightly increased compared with measurement of 3.6 x 2.8 cm at the same level. Bones/joints: Mild degenerative change present in the spine. Soft tissues: Unremarkable. CT/CT abdomen pelvis w con* [id number] IMPRESSION: 1. No acute pathology. 2. Large amount of colonic stool. 3. Bilateral adnexal cysts again noted, unchanged on the right but increased on the left. Ultrasound recommended for more detailed assessment. 4. Minor findings as above.
[2023-07-21 13:26] LABS: Bilirubin Urine Neg (Negative); Blood Urine Neg (Negative); Glucose Urine UA Norm (Normal); Ketones Urine Negative (Negative); Leukocyte Esterase Urine Negative (Negative); Nitrate Urine Negative (Negative); Protein Urine Neg (Negative); Specific Gravity, Urine 1.015 (1.005-1.030); Urine Appearance Clear (CLEAR); Urine Color Yellow (Yellow); Urobilinogen Urine Neg (Negative); pH Urine 5 (5-7)
[2023-07-21] MEDS: iohexol 350 mg/mL 500 mL Btl (per mL) IV (14:19)
--- NOTE | 2023-07-21 15:45 | ECG_ITS ---
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 Measurements Intervals [place] Rate: 71 P: 55 UT: 160 QRS: 33 QRSD: 98 T: 63 QT: 407 QTc: 444 Interpretive Statements SINUS RHYTHM Compared to ECG 07/21/2023 11:12:57 No significant changes Electronically Signed On 07-21-2023 19:03:53 CDT by Blair Gallegos M.D. [id number]
== END 2023-07-21 15:55 | disposition home or self-care (01) ==
PROVIDERS: Emergency Provider Physician Assistant; PCP Family Medicine
DX: R10.12 Left upper quadrant pain (principal); Z87.891 Personal history of nicotine dependence; Z87.440 Personal history of urinary (tract) infections
CPT/HCPCS: 36415; 74177; 80053; 81003; 83690; 85025; 86140; 93005; 99285; Q9967

== ENCOUNTER → 2023-09-11 13:31 | Outpatient (BNVA) | payer MEDICARE, BC, SELFPAY | PROVIDERS: PCP Family Medicine; Visit Provider Nurse Practitioner Family | DX: L56.8 Other specified acute skin changes due to ultraviolet radiation (principal); L30.0 Nummular dermatitis; L81.4 Other melanin hyperpigmentation; L82.1 Other seborrheic keratosis; D22.0 Melanocytic nevi of lip | CPT/HCPCS: 17110; 99214 ==

== ENCOUNTER 2023-09-30 14:24 | Outpatient (CLI) | payer MEDICARE, BC, SELFPAY | END 2023-09-30 14:25 | disposition home or self-care (01) | LOC: SLEEP 14:25 | PROVIDERS: PCP Family Medicine; Visit Provider Family Medicine | DX: G47.33 Obstructive sleep apnea (adult) (pediatric) (principal) | CPT/HCPCS: G0399 ==

== ENCOUNTER 2023-10-31 09:00 | Oncology outpatient (recurring) (ONCR) | payer MEDICARE, BC, SELFPAY ==
[2023-10-31 09:21] VITALS: BP 117/73; PULSE 79; RESP 16; TEMP 36.8; O2SAT 94
[2023-10-31] MEDS: denosumab 60 mg SDV SUBCUT (09:24)
== END 2023-11-10 23:59 | disposition home or self-care (01) ==
PROVIDERS: PCP Family Medicine; Visit Provider Family Medicine
DX: M81.0 Age-related osteoporosis without current pathological fracture (principal); Z79.899 Other long term (current) drug therapy
CPT/HCPCS: 96372; J0897

== ENCOUNTER → 2023-12-02 09:26 | Outpatient (BNVA) | payer MEDICARE, BC, SELFPAY | PROVIDERS: PCP Family Medicine; Visit Provider Podiatrist Foot & Ankle Surgery | DX: M79.671 Pain in right foot (principal); M21.621 Bunionette of right foot; M77.41 Metatarsalgia, right foot; L84 Corns and callosities; M76.811 Anterior tibial syndrome, right leg | CPT/HCPCS: 73630; 99213 ==

== ENCOUNTER 2023-12-24 09:22 | Outpatient (CLI) | payer MEDICARE, BC, SELFPAY ==
--- NOTE | 2023-12-24 09:28 | MM_ITS ---
WS: [id number] BILATERAL SCREENING DIGITAL TOMOSYNTHESIS MAMMOGRAM WITH CAD HISTORY: SCREENING COMPARISON: 12/20/2022, 12/18/2021, 10/18/2020 Bilateral CC and MLO views with tomosynthesis and synthetic mammography submitted. Computer aided det ection analyzed. Breast composition: There are scattered areas of fibroglandular density. No suspicious masses, microc alcifications or architectural distortion. MM/MM scr BI tomosynthesis [id number] IMPRESSION: BI-RADS: 2 - Benign. FOLLOW UP: 1 Year Follow-up
== END 2023-12-24 09:23 | disposition home or self-care (01) ==
PROVIDERS: PCP Family Medicine; Visit Provider Family Medicine
DX: Z12.31 Encounter for screening mammogram for malignant neoplasm of breast (principal)
CPT/HCPCS: 77063; 77067

== ENCOUNTER 2023-12-24 10:59 | Outpatient (CLI) | payer MEDICARE, BC, SELFPAY | END 2023-12-24 11:00 | disposition home or self-care (01) | LOC: SPT 11:00 | PROVIDERS: PCP Family Medicine; Visit Provider Podiatrist Foot & Ankle Surgery | DX: Z46.89 Encounter for fitting and adjustment of other specified devices (principal); M77.41 Metatarsalgia, right foot; L84 Corns and callosities; M21.621 Bunionette of right foot; M79.671 Pain in right foot | CPT/HCPCS: L3030 ==

== ENCOUNTER 2023-12-30 06:00 | Outpatient (CLI) | payer MEDICARE, BC, SELFPAY | END 2023-12-30 06:01 | disposition home or self-care (01) | LOC: RAD 01-08 09:36 | PROVIDERS: PCP Family Medicine; Visit Provider Family Medicine | DX: E78.5 Hyperlipidemia, unspecified (principal); Z86.39 Personal history of other endocrine, nutritional and metabolic disease; E89.0 Postprocedural hypothyroidism | CPT/HCPCS: 80053; 80061; 84439; 84443; 85025; 86376 ==

== ENCOUNTER 2024-01-15 07:55 | Oncology outpatient (recurring) (ONCR) | payer MEDICARE, BC, SELFPAY ==
--- NOTE | 2024-01-15 08:30 | US_ITS ---
WS: [id number] US pelvis lmt w transvag HISTORY: ovarian cysts COMPARISON: CT 07/21/2023 Prior hysterectomy. No midline mass. No fluid in the central pelvis. Neither ovary is identified. Previously described adnexal cysts by CT on 07/21/2023 are not apparent. Moderate amount of peristalsing fluid-filled loops of bowel in the pelvis. US/US pelvis lmt w transvag IMPRESSION: 1. Status post hysterectomy. 2. No adnexal masses identified. 3. Neither ovary is identified. The previously described cyst seen on CT of 11/2023 are not evident.
== END 2024-02-10 23:59 | disposition home or self-care (01) ==
LOC: RAD 07:56 → ONCMED 09:09
PROVIDERS: PCP Family Medicine; Visit Provider Family Medicine
DX: M81.0 Age-related osteoporosis without current pathological fracture (principal); Z79.899 Other long term (current) drug therapy; N83.201 Unspecified ovarian cyst, right side; N83.202 Unspecified ovarian cyst, left side
CPT/HCPCS: 76830; 76857

== ENCOUNTER 2024-01-16 13:55 | Outpatient (CLI) | payer MEDICARE, BC, SELFPAY ==
--- NOTE | 2024-01-16 13:57 | XR_ITS ---
WS: [id number] DEXA (DUAL ENERGY X-RAY ABSORPTIOMETRY) Bone mineral density was performed using a [employer] machine. HISTORY: osteoporosis COMPARISON: 12/18/2021 Lumbar spine BMD (L1-L4): 1.471 g/cm2 T score: 2.4 Z score: 3.5 Total hip BMD: Left: 0.855 g/cm2. T score: -1.2 Z score: -0.2 Right: 0.841 g/cm2. T score: -1.3 Z score: -0.3 10 year probability of a major osteoporotic fracture is 12.0%. Compared to the prior study from 12/18/2021. Lumbar spine bone mineral density has increased by 4.1%. Bilateral hips bone mineral density has increased by 27.1%. XR/XR DEXA axial skeleton* [id number] IMPRESSION: OSTEOPENIA based upon the WHO classification for females. Significant increase in bone mineral density within the lumbar spine and hips s jaida the prior study.
== END 2024-01-16 13:56 | disposition home or self-care (01) ==
LOC: RAD 13:56
PROVIDERS: PCP Family Medicine; Visit Provider Family Medicine
DX: L56.8 Other specified acute skin changes due to ultraviolet radiation (principal); L30.0 Nummular dermatitis; L71.0 Perioral dermatitis; K14.1 Geographic tongue; Z13.820 Encounter for screening for osteoporosis; M85.80 Other specified disorders of bone density and structure, unspecified site
CPT/HCPCS: 77080; 80053; 80061; 84439; 84443; 85025; 86376; 99214

== ENCOUNTER → 2024-02-18 11:41 | Outpatient (BNVA) | payer MEDICARE, BC, SELFPAY | PROVIDERS: PCP Family Medicine; Visit Provider Family Medicine | DX: E89.0 Postprocedural hypothyroidism (principal); G47.33 Obstructive sleep apnea (adult) (pediatric); M85.80 Other specified disorders of bone density and structure, unspecified site | CPT/HCPCS: 84439; 84443 ==

== ENCOUNTER → 2024-02-25 08:37 | Outpatient (BNVA) | payer MEDICARE, BC, SELFPAY | PROVIDERS: PCP Family Medicine; Visit Provider Emergency Medicine | DX: J02.9 Acute pharyngitis, unspecified (principal) | CPT/HCPCS: 87071; 87880 ==

== ENCOUNTER → 2024-03-22 15:37 | Outpatient (BNVA) | payer MEDICARE, BC, SELFPAY | PROVIDERS: PCP Family Medicine; Visit Provider Podiatrist Foot & Ankle Surgery | DX: M21.621 Bunionette of right foot (principal); M77.41 Metatarsalgia, right foot; L84 Corns and callosities; M76.811 Anterior tibial syndrome, right leg | CPT/HCPCS: 99213 ==

== ENCOUNTER 2024-04-28 13:54 | Oncology outpatient (recurring) (ONCR) | payer MEDICARE, BC, SELFPAY ==
[2024-04-28] MEDS: denosumab 60 mg SDV SUBCUT (14:23)
== END 2024-05-10 23:59 | disposition home or self-care (01) ==
LOC: ONCMED 13:54
PROVIDERS: PCP Family Medicine; Visit Provider Family Medicine
DX: M81.0 Age-related osteoporosis without current pathological fracture (principal); Z79.899 Other long term (current) drug therapy
CPT/HCPCS: 96372; J0897

== ENCOUNTER 2024-04-30 14:45 | Emergency (ER) | payer BC, MEDICARE, SELFPAY ==
[2024-04-30 15:18] VITALS: BP 139/90; PULSE 96; RESP 18; TEMP 37; O2SAT 97; BMI 25.1
--- NOTE | 2024-04-30 18:09 | CTR_ITS ---
PROCEDURE INFORMATION: Exam: CT Head Without Contrast Exam date and time: 04/30/2024 6:52 PM Age: 69 years old Clinical indication: Injury or trauma; Fall; Concussion/head injury; Consciousness not specified; Additional info: Fall, hit head; Blurry vision/reilly TECHNIQUE: Imaging protocol: Computed tomography of the head without contrast. Radiation optimization: All CT scans at this facility use at least one of these dose optimization techniques: automated exposure control; mA and/or kV adjustment per patient size (includes targeted exams where dose is matched to clinical indication); or iterative reconstruction. COMPARISON: CT head wo con* [id number] 05/19/2020 4:07 PM RADIATION DOSE METRICS: Total DLP (mGy-cm): 1168.12 FINDINGS: Brain: Mild cerebral atrophy and ischemic leukoencephalopathy. Cerebral ventricles: No ventriculomegaly. Paranasal sinuses: Visualized sinuses are unremarkable. No fluid levels. Mastoid air cells: Visualized mastoid air cells are well aerated. Bones: Unremarkable. No acute fracture. Soft tissues: Soft tissue swelling and/or hematoma over the left orbit and forehead. CT/CT head wo con* [id number] IMPRESSION: 1. Soft tissue swelling and/or hematoma over the left orbit and forehead. 2. No acute intracranial findings.
--- NOTE | 2024-04-30 18:29 | CTR_ITS ---
PROCEDURE INFORMATION: Exam: CT Cervical Spine Without Contrast Exam date and time: 04/30/2024 6:54 PM Age: 69 years old Clinical indication: Injury or trauma; Fall; Concussion/head injury TECHNIQUE: Imaging protocol: Computed tomography of the cervical spine without contrast. Radiation optimization: All CT scans at this facility use at least one of these dose optimization techniques: automated exposure control; mA and/or kV adjustment per patient size (includes targeted exams where dose is matched to clinical indication); or iterative reconstruction. COMPARISON: CT cervical spin wo con* [id number] 05/19/2020 4:10 PM RADIATION DOSE METRICS: Total DLP (mGy-cm): 144.57 FINDINGS: Bones: Moderate to severe multilevel spine degenerative changes including degenerative disc disease, spondylosis and facet degenerative changes. Multilevel bilateral foraminal stenosis. Lungs: Lung apices are normal. Soft tissues: Unremarkable. CT/CT cervical spin wo con* [id number] IMPRESSION: No acute findings. .
--- NOTE | 2024-04-30 18:31 | W.ED.FALL ---
HPI - Fall General: Chief Complaint: Fall Stated Complaint: fell, head injury,general pain Time Seen by Provider: 04/30/24 18:12 History of Present Illness: 69-year-old female reports a mechanical fall at home on her driveway. She was looking at her who was across from her. She was walking at the transition where the cement goes to rock. There was a small drop off where the rock had been washed away. She caught her foot and fell. She hit her forehead left of midline and scraped her left nose and face. No loss of consciousness. Takes no anticoagulation. No vomiting. No confusion. No repetitive speech. She reports her left shoulder hurt initially. However now it is just slightly sore and she is able to perform normal range of motion. She reports no significant injury to her lower extremities. She checked her knees and has rosemarie sized abrasions on her kneecaps but has no pain with bending or straightening. Related Data Home Medications ?Medication ?Instructions ?Recorded ?Confirmed acetaminophen 650 mg 650 mg PO Q8H PRN Pain 03/23/19 03/22/24 tablet,extended release (Tylenol Arthritis Pain) oxygen-air delivery systems 08/28/21 03/22/24 ascorbic acid (vitamin C) 1,000 mg 1 g PO Q6H 12/30/23 03/22/24 capsule biotin 2,500 mcg capsule 2,500 mcg PO DAILY 12/30/23 03/22/24 calcium carbonate 600 mg PO DAILY 12/30/23 03/22/24 coenzyme Q10 60 mg tablet 60 mg PO DAILY 12/30/23 03/22/24 cyanocobalamin (vitamin B-12) 5,000 mcg PO DAILY 12/30/23 03/22/24 5,000 mcg capsule magnesium gluconate 27.5 mg 27.5 mg PO BID 12/30/23 03/22/24 magnesium (500 mg) tablet multivitamin 1 tab PO DAILY 12/30/23 03/22/24 omega-3 fatty acids 500 mg capsule 500 mg PO DAILY 12/30/23 03/22/24 vitamin D3 1,250 mcg (50,000 cap PO 12/30/23 03/22/24 unit)-vitamin K2 200 mcg capsule zinc sulfate 50 mg zinc (220 mg) 50 mg PO DAILY 12/30/23 03/22/24 capsule (Orazinc) Previous Rx's ?Medication ?Instructions ?Recorded denosumab 60 mg/mL subcutaneous 60 mg SUBCUT .every 6 months #1 mL 09/29/23 syringe (Prolia) custom insoles #1 ea 12/02/23 omeprazole 40 mg capsule,delayed 40 mg PO DAILY #90 caps 02/18/24 release levothyroxine 125 mcg tablet 125 mcg PO DAILY #60 tabs 02/19/24 amoxicillin 500 mg tablet 500 mg PO BID 10 days #20 tabs 02/25/24 [id number]-[id number]-EC 5 ml PO Q6H PRN cold symptoms #118 02/25/24 2 mg-30 mg-10 mg/5 mL oral syrup mL (Bromfed DM) dexamethasone 2 mg tablet 10 mg (5 x 2 mg) PO DAILY 1 day #5 02/25/24 tabs tirzepatide (weight loss) 5 mg/0.5 5 mg (0.5 mL) SUBCUT .weekly #2 mL 03/18/24 mL subcutaneous pen injector rosuvastatin 5 mg tablet 5 mg PO DAILY #90 tabs 03/29/24 Allergies Allergy/AdvReac Type Severity Reaction Status Date / Time triclosan Allergy Severe Swelling Verified 03/22/24 15:59 cefuroxime Allergy rash Verified 03/22/24 15:59 hydrocodone (From Lortab) Allergy rash Verified 03/22/24 15:59 nitrofurantoin Allergy rash Verified 03/22/24 15:59 sulfamethoxazole (From Allergy rash Verified 03/22/24 15:59 Bactrim) trimethoprim (From Bactrim) Allergy rash Verified 03/22/24 15:59 codeine AdvReac pt feels Verified 03/22/24 15:59 scared, paranoid, states she feels very anxious Sulfa (Sulfonamide AdvReac other Verified 03/22/24 15:59 Antibiotics) Review of Systems General: Reports: 10 or more systems reviewed and unremarkable except in HPI and below PFSH ED PFSH: Medical History Osteopenia IBS (irritable bowel syndrome) Osteoporosis Essential tremor Hypothyroidism Mass of left finger Spinal stenosis, cervical region KRISTIAN (obstructive sleep apnea) Recurrent UTI History of cataract bilateral Spondylolisthesis of cervical region Skull lesion Stenosis of cervical spine with myelopathy Cervical disc disorder with myelopathy of mid-cervical region Surgical History History of colonoscopy with polypectomy 2014 History of esophagogastroduodenoscopy (EGD) 2019 History of thyroidectomy 2017 History of hysterectomy 1993 History of hernia repair 2x History of appendectomy History of cholecystectomy performed in [place], [place] History of laminectomy L5-S1 decompression performed in [place], [place] 1991 and [facility] 1989 History of knee surgery Family History Father Heart disease Mother Diabetes Sister Polymyositis Diabetes Brother Heart disease Social History Smoking and tobacco/nicotine status: never used tobacco/nicotine Alcohol intake: current Alcohol intake frequency: holidays/special occasions only Substance/Drug Use: never Household members: spouse Marital status: Current occupational status: retired Physical Exam Narrative: EXAM NARRATIVE: Hematoma developing on forehead slightly left of midline. 0.5 cm skin avulsion that is a rounded shape, probably from a rock in the middle of the hematoma. No active bleeding. Some superficial abrasions on the left side of the nose and cheek. Patient is able to open and close her jaw without pain. Midface is stable. Nasal bones are stable without deformity. No epistaxis. No discharge from the nose or ears. Pupils are equal round and reactive to light. Neck is mildly tender in the midline in the upper few vertebrae. No tenderness in the remainder of the spine. Passive range of motion of the lower extremities reveals no pain or complaints. No deformities. Tiny superficial abrasions on the kneecaps. No bony tenderness of the kneecaps. Pelvis stable. Chest wall nontender. Normal work of breathing. Right upper extremity unremarkable. Left upper extremity reveals mild pain with active range of motion of the left shoulder. However, the range of motion is not limited. There is no crepitus. There is small abrasions across the deltoid region. Patient can abduct, abduct, flex, extend the shoulder without limitation. Clavicles are nontender. Const: COMMON NORMALS: no limitations, alert and well nourished EXAM LIMITATIONS: no altered mental status [facility]: COMMON NORMALS: normocephalic and external ears normal HEAD & SCALP: normocephalic EXTERNAL EAR: Yes external ears normal MOUTH: no muffled voice Eye: COMMON NORMALS: EOMs intact bilaterally, conjunctivae normal and no scleral icterus CONJUNCTIVA: Yes conjunctivae normal Neck/C-Spine: COMMON NORMALS: no JVD GENERAL: Yes normal visual inspection and Yes trachea midline Resp: COMMON NORMALS: normal respiratory effort, No use of accessory muscles and clear to auscultation bilaterally AUSCULTATION: clear to auscultation bilaterally Cardio: COMMON NORMALS: no JVD, regular rate and regular rhythm RATE: regular rate RHYTHM: regular rhythm Neuro: COMMON NORMALS: moves all extremities, no focal motor deficits and no sensory deficits noted SENSORIUM/ORIENTATION: Yes alert SPEECH: speech normal Psych: COMMON NORMALS: mental status grossly normal, Normal thought process present, cooperative, normal affect and speech normal SPEECH: Yes normal speech THOUGHT PROCESS: Normal thought process present Skin: COMMON NORMALS: turgor normal and no jaundice GENERAL SKIN EXAM: turgor normal Course Vital Signs: Vital signs: Vital Signs Temperature 98.6 F 04/30/24 15:18 Pulse Rate 73 04/30/24 19:56 Respiratory Rate 15 04/30/24 19:56 Blood Pressure 146/81 04/30/24 19:56 Pulse Oximetry 96 04/30/24 19:56 Oxygen Delivery Me thod Room Air 04/30/24 15:18 MDM - Fall Medical Decision Making 1. Minor closed head injury without loss of consciousness or sign of concussion. Age greater than 65. Per guidelines, CT scan of the head was obtained. No intracranial injury or skull fracture. 2. Mild tenderness in the first couple vertebrae of the cervical spine. Patient reports she does have chronic neck pain and it may be unrelated. She does have osteopenia. CT was performed and there is no fracture. She has some chronic degenerative changes. 3. Abrasions. Patient reports she does not need a tetanus update. We will treat these with supportive care including cleaning, antibiotic cream, bandaging. Update Patient was reassessed after imaging performed. Patient has no new complaints. I did give her some intranasal fentanyl as well as Tylenol and she feels much much better. Mental status is normal. GCS is 15. No neurodeficits. Patient can be discharged to home. here with the patient to drive. Lab Data Radiology Impressions Head CT 04/30/24 18:09 IMPRESSION: 1. Soft tissue swelling and/or hematoma over the left orbit and forehead. 2. No acute intracranial findings. Cervical Spine CT 04/30/24 18:29 IMPRESSION: No acute findings. . All radiology interpretation(s) finalized by discharge Discharge Plan Discharge Patient Disposition: Home Clinical Impression: Traumatic hematoma of forehead, Fall from standing, Abrasion of face, Closed head injury without loss of consciousness Condition: Stable Prescriptions: No Action acetaminophen [Tylenol Arthritis Pain] 650 mg tablet extended release 650 mg PO Q8H PRN (Reason: Pain) (DME) oxygen-air delivery systems Device See Rx Instructions .Route Rx Instructions: As directed Prolia 60 mg/mL syringe 60 mg SUBCUT .every 6 months Qty: 1 1RF dexamethasone 2 mg tablet 10 mg PO DAILY 1 Days Qty: 5 0RF Rx Instructions: take all at same time today yvjstzvzewlfgfa-jummnskka-HU [Bromfed DM] 2-30-10 mg/5 mL syrup 5 ml PO Q6H PRN (Reason: cold symptoms) Qty: 118 0RF amoxicillin 500 mg tablet 500 mg PO BID 10 Days Qty: 20 0RF multivitamin Tablet 1 tab PO DAILY calcium carbonate 600 mg calcium (1,500 mg) tablet 600 mg PO DAILY coenzyme Q10 60 mg tablet 60 mg PO DAILY zinc sulfate [Orazinc] 50 mg zinc (220 mg) capsule 50 mg PO DAILY omega-3 fatty acids 500 mg capsule 500 mg PO DAILY biotin 2,500 mcg capsule 2,500 mcg PO DAILY magnesium gluconate 27.5 mg magne- sium (500 mg) tablet 27.5 mg PO BID cyanocobalamin (vitamin B-12) 5,000 mcg capsule 5,000 mcg PO DAILY vitamin D3-vitamin K2 1,250-200 mcg capsule PO ascorbic acid (vitamin C) 1,000 mg capsule 1 g PO Q6H (DME) custom insoles See Rx Instructions .Route .MEDSUPPLY Qty: 1 0RF Rx Instructions: As directed to sole supports omeprazole 40 mg capsule,delayed release(DR/EC) 40 mg PO DAILY Qty: 90 1RF levothyroxine 125 mcg tablet 125 mcg PO DAILY Qty: 60 1RF Rx Instructions: SYNTHROID BRAND ONLY tirzepatide (weight loss) 5 mg/0.5 mL pen injector 5 mg SUBCUT .weekly Qty: 2 2RF Rx Instructions: May compound to multi dose vials rosuvastatin 5 mg tablet 5 mg PO DAILY Qty: 90 1RF Discharge Orders: Discharge ED (Routine); Ordered 04/30/24 Ordered By: Heraclio Almanza Referrals: Cecil Hernandez MD [Primary Care Provider] - Patient Instructions: Head Injury (ED), Hematoma (ED), Pain Management Activity Restrictions/Additional Instructions: You do not have any signs of skull fracture or bleeding inside the skull. No signs of neck fracture. You do have multilevel degenerative changes in your neck. The hematoma and bruising will likely get darker and spread. It will take over a week for this to resolve. Please read the handout regarding head injuries. You may take Tylenol as needed for pain. You should also use ice packs at the base of the skull along with range of motion and gentle exercise. If you have vomiting, confusion, seizure, or severe pain then please return to the emergency department. Print Language: Wolof Coding Level of Care Code ED Pig Furnace Operator for Ana Patel
[2024-04-30 18:45] VITALS: RESP 18; O2SAT 95
[2024-04-30] MEDS: acetaminophen 500 mg Tablet 1000 MG PO (18:45)
[2024-04-30] MEDS: fentaNYL 50 mcg/mL INJ 2mL 100 MCG XX (18:45)
--- NOTE | 2024-04-30 18:51 | PC.NURSE ---
Fentanyl administered, cardiac cath tech applied.
[2024-04-30 19:19] VITALS: BP 146/81; PULSE 80; RESP 19; O2SAT 96
[2024-04-30 19:56] VITALS: BP 146/81; PULSE 73; RESP 15; O2SAT 96
[2024-04-30 20:19] VITALS: BP 146/81; PULSE 77; O2SAT 95
== END 2024-04-30 20:20 | disposition home or self-care (01) ==
PROVIDERS: Emergency Provider Emergency Medicine; PCP Family Medicine
DX: S09.8XXA Other specified injuries of head, initial encounter (principal); S00.83XA Contusion of other part of head, initial encounter; W19.XXXA Unspecified fall, initial encounter; S00.81XA Abrasion of other part of head, initial encounter
CPT/HCPCS: 70450; 72125; 96374; 99284; J3010; J9999

== ENCOUNTER → 2024-06-08 14:09 | Outpatient (BNVA) | payer MEDICARE, BC, SELFPAY | PROVIDERS: PCP Family Medicine; Visit Provider Surgery | DX: Z12.11 Encounter for screening for malignant neoplasm of colon (principal) | CPT/HCPCS: 99024; 99204 ==

== ENCOUNTER → 2024-06-21 15:57 | Outpatient (BNVA) | payer MEDICARE, BC, SELFPAY | PROVIDERS: PCP Family Medicine; Visit Provider Family Medicine | DX: E89.0 Postprocedural hypothyroidism (principal); E66.3 Overweight; G25.0 Essential tremor; G47.33 Obstructive sleep apnea (adult) (pediatric); M85.80 Other specified disorders of bone density and structure, unspecified site | CPT/HCPCS: 84439; 84443 ==

== ENCOUNTER 2024-07-01 08:00 | Day surgery (SDC) | payer MEDICARE, BC, SELFPAY ==
--- NOTE | 2024-07-01 08:17 | W.PM.OPSUD ---
Surgery/Procedure H&P Update DATE OF PROCEDURE: July 01, 2024 DATE H&P PERFORMED: 07/08/24 H&P UPDATE INFORMATION: I have reviewed H&P completed within last 30 days, I have examined patient prior to procedure, No changes to prior documentation, Changes to prior documentation as noted here and Risks and benefits of the procedure reviewed PLANNED PROCEDURE: Operation Date: 07/01/24 09:30 Proposed Procedures p Colonoscopy 13524 G0121, Z12.11(Not Applicable) - Pantera Fonseca MD
[2024-07-01 08:19] VITALS: BP 116/83; PULSE 84; RESP 16; TEMP 36.6; O2SAT 98; BMI 25.1
[2024-07-01] MEDS: sodium chloride 0.9% 1,000 ML 30 ML IV (08:24)
--- NOTE | 2024-07-01 08:33 | ANES.PREANE2 ---
Pre-Anesthetic Assessment Height/Weight: Height 5 ft 10 in Weight 175 lb Temp Pulse Resp BP Pulse Ox O2 Del Method 97.8 F 84 16 116/83 98 Room Air 07/01/24 08:19 07/01/24 08:19 07/01/24 08:19 07/01/24 08:19 07/01/24 08:19 07/01/24 08:19 Preop Diagnosis: Screening colonoscopy Operation Date: 07/01/24 09:30 Proposed Procedures p Colonoscopy 71014 G0121, Z12.11(Not Applicable) - Pantera Fonseca MD Was Beta Penny taken within 24 hours: N/A Was Clonidine taken within 24 hours: N/A Last intake: Intake Last Liquid Date 06/30/24 Last Liquid Time 20:00 Last Solid Date 06/29/24 Last Solid Time 17:00 Social No alcohol and No tobacco Exam alert, oriented x 3, clear to auscultation bilaterally and regular rate & rhythm Airway Submandibular: within normal limits Cervical ROM: within normal limits Mallampati: Class II Dentition: full Anesthetic Plan ASA status: 3 Anesthesia: MAC Other: No prior issues with anesthesia Completed bowel prep History of KRISTIAN on CPAP nightly Cervical disc disorder Hypothyroidism on Synthroid METs greater than 4 Plan for MAC anesthesia Medications/Allergies Home Medications ?Medication ?Instructions ?Recorded ?Confirmed ?Last Taken ?Type acetaminophen 650 mg 650 mg PO Q8H PRN Pain 03/23/19 07/01/24 1 Week Ago History tablet,extended release (Tylenol ~06/21/24 Arthritis Pain) oxygen-air delivery systems 08/28/21 06/21/24 Unknown History custom insoles #1 ea 12/02/23 06/21/24 Unknown Rx ascorbic acid (vitamin C) 1,000 mg 1 g PO Q6H 12/30/23 07/01/24 06/27/24 History capsule calcium carbonate 600 mg PO DAILY 12/30/23 07/01/24 06/27/24 History coenzyme Q10 60 mg tablet 60 mg PO DAILY 12/30/23 07/01/24 06/26/24 History cyanocobalamin (vitamin B-12) 5,000 mcg PO DAILY 12/30/23 07/01/24 06/27/24 History 5,000 mcg capsule magnesium gluconate 27.5 mg 27.5 mg PO BID 12/30/23 07/01/2406/29/25 History magnesium (500 mg) tablet multivitamin 1 tab PO DAILY 12/30/23 07/01/24 06/29/24 History vitamin D3 1,250 mcg (50,000 1 cap PO DAILY 12/30/23 07/01/24 06/29/24 History unit)-vitamin K2 200 mcg capsule omeprazole 40 mg capsule,delayed 40 mg PO DAILY #90 caps 02/18/24 07/01/24 06/29/24 Rx release tirzepatide (weight loss) 5 mg/0.5 5 mg (0.5 mL) SUBCUT .weekly #2 mL 03/18/24 07/01/24 06/16/24 Rx mL subcutaneous pen injector rosuvastatin 5 mg tablet 5 mg PO DAILY #90 tabs 03/29/24 07/01/24 06/29/24 Rx denosumab 60 mg/mL subcutaneous 60 mg SUBCUT .every 6 months #1 mL 05/19/24 07/01/24 2 Months Ago Rx syringe (Prolia) ~04/28/24 levothyroxine 137 mcg tablet 137 mcg PO DAILY #90 tabs 06/23/24 07/01/24 07/01/24 Rx Allergies Allergy/AdvReac Type Severity Reaction Status Date / Time triclosan Allergy Severe Swelling Verified 07/01/24 08:17 cefuroxime Allergy rash Verified 07/01/24 08:17 hydrocodone (From Lortab) Allergy rash Verified 07/01/24 08:17 nitrofurantoin Allergy rash Verified 07/01/24 08:17 sulfamethoxazole (From Allergy rash Verified 07/01/24 08:17 Bactrim) trimethoprim (From Bactrim) Allergy rash Verified 07/01/24 08:17 codeine AdvReac pt feels Verified 07/01/24 08:17 scared, paranoid, states she feels very anxious Sulfa (Sulfonamide AdvReac other Verified 07/01/24 08:17 Antibiotics) Current Medications Generic Name Dose Route Start Last Admin Trade Name Freq PRN Reason Stop Dose Admin Sodium Chloride 1,000 mls @ 30 mls/hr 07/01/24 08:15 07/01/24 08:24 Sodium Chloride 0.9% IV 07/02/24 08:14 30 mls/hr .Q24H PAIGE Administration PFSH Anesthesia Medical History Osteopenia IBS (irritable bowel syndrome) Osteoporosis Essential tremor Hypothyroidism Mass of left finger Spinal stenosis, cervical region KRISTIAN (obstructive sleep apnea) Recurrent UTI History of cataract bilateral Spondylolisthesis of cervical region Skull lesion Stenosis of cervical spine with myelopathy Cervical disc disorder with myelopathy of mid-cervical region Surgical History History of colonoscopy with polypectomy 2015 History of esophagogastroduodenoscopy (EGD) 2019 History of thyroidectomy 2017 History of hysterectomy 1993 History of hernia repair 2x History of appendectomy History of cholecystectomy performed in [place], [place] History of laminectomy L5-S1 decompression performed in [place], [place] 1991 and [facility] 1989 History of knee surgery Family History Father Heart disease Mother Diabetes Sister Polymyositis Diabetes Brother Heart disease Social History Smoking and tobacco/nicotine status: former use of tobacco/nicotine Alcohol intake: current Alcohol intake frequency: holidays/special occasions only Substance/Drug Use: never Household members: spouse Marital status: Current occupational status: retired
[2024-07-01 08:50] VITALS: BP 101/59; PULSE 72; RESP 16; TEMP 36.3; O2SAT 98
[2024-07-01 09:03] VITALS: BP 109/71; PULSE 70; RESP 16; O2SAT 98
--- NOTE | 2024-07-01 09:22 | ANE.PACU2 ---
Inpatient post-anesthesia follow up: Airway intact: Yes Vital signs: Temperature 97.4 F Pulse Rate 70 Respiratory Rate 16 Blood Pressure 109/71 Pulse Oximetry 98 Oxygen Delivery Me thod Room Air Oxygen Flow Rate Fraction of Inspir ed Oxygen Hydration adequate: Yes Nausea and vomiting: No Pain level: 1 Mental status: Baseline
== END 2024-07-01 09:22 | disposition home or self-care (01) ==
PROVIDERS: PCP Family Medicine; Visit Provider Surgery
PROC: 0DJD8ZZ Inspection of Lower Intestinal Tract, Via Natural or Artificial Opening Endoscopic (ICD-10-PCS; CPT 45378; principal; 2024-07-01 09:30)
DX: Z12.11 Encounter for screening for malignant neoplasm of colon (principal); G47.33 Obstructive sleep apnea (adult) (pediatric); E03.9 Hypothyroidism, unspecified; Z79.890 Hormone replacement therapy; Z79.83 Long term (current) use of bisphosphonates; Z79.899 Other long term (current) drug therapy; Z88.5 Allergy status to narcotic agent; Z88.2 Allergy status to sulfonamides; Z88.8 Allergy status to other drugs, medicaments and biological substances; Z87.891 Personal history of nicotine dependence
CPT/HCPCS: G0121; J2704; J7030

== ENCOUNTER → 2024-07-29 15:48 | Outpatient (BNVA) | payer MEDICARE, BC, SELFPAY | PROVIDERS: PCP Family Medicine; Visit Provider Family Medicine | DX: E89.0 Postprocedural hypothyroidism (principal) | CPT/HCPCS: 84439; 84443 ==

== ENCOUNTER → 2024-08-24 08:10 | Outpatient (BNVA) | payer MEDICARE, BC, SELFPAY | PROVIDERS: PCP Family Medicine; Visit Provider Podiatrist Foot & Ankle Surgery | DX: R20.2 Paresthesia of skin (principal); M54.17 Radiculopathy, lumbosacral region | CPT/HCPCS: 99214 ==

== ENCOUNTER → 2024-08-26 14:59 | Outpatient (BNVA) | payer MEDICARE, BC, SELFPAY | PROVIDERS: PCP Family Medicine; Visit Provider Internal Medicine Cardiovascular Disease | DX: I48.91 Unspecified atrial fibrillation (principal); I49.3 Ventricular premature depolarization; I49.1 Atrial premature depolarization; I47.10 Supraventricular tachycardia, unspecified | CPT/HCPCS: 93246 ==

== ENCOUNTER → 2024-09-10 08:10 | Outpatient (BNVA) | payer MEDICARE, BC, SELFPAY | PROVIDERS: PCP Family Medicine; Visit Provider Nurse Practitioner Family | DX: L30.0 Nummular dermatitis (principal); L82.1 Other seborrheic keratosis; D22.0 Melanocytic nevi of lip; L57.8 Other skin changes due to chronic exposure to nonionizing radiation; L57.3 Poikiloderma of Civatte; X32.XXXA Exposure to sunlight, initial encounter; L81.4 Other melanin hyperpigmentation; L82.0 Inflamed seborrheic keratosis; L53.8 Other specified erythematous conditions; R20.8 Other disturbances of skin sensation; R58 Hemorrhage, not elsewhere classified; Z78.9 Other specified health status; L57.0 Actinic keratosis | CPT/HCPCS: 17000; 17110; 99214 ==

== ENCOUNTER 2024-10-25 09:36 | Oncology outpatient (recurring) (ONCR) | payer MEDICARE, BC, SELFPAY ==
[2024-10-25] MEDS: denosumab 60 mg SDV (Infusion Clinic Only) SUBCUT (10:19)
== END 2024-11-09 23:59 | disposition home or self-care (01) ==
PROVIDERS: PCP Family Medicine; Visit Provider Family Medicine
DX: M81.0 Age-related osteoporosis without current pathological fracture (principal); Z79.899 Other long term (current) drug therapy
CPT/HCPCS: 96372; J0897

== ENCOUNTER → 2024-12-14 10:31 | Outpatient (BNVA) | payer MEDICARE, BC, SELFPAY | PROVIDERS: PCP Family Medicine; Visit Provider Family Medicine | DX: R73.03 Prediabetes (principal); E78.5 Hyperlipidemia, unspecified; E89.0 Postprocedural hypothyroidism | CPT/HCPCS: 80053; 80061; 83036; 84439; 84443; 85025 ==

== ENCOUNTER 2024-12-24 09:38 | Outpatient (CLI) | payer MEDICARE, BC, SELFPAY ==
--- NOTE | 2024-12-24 09:44 | MM_ITS ---
WS: [id number] BILATERAL SCREENING DIGITAL TOMOSYNTHESIS MAMMOGRAM WITH CAD HISTORY: SCREENING COMPARISON: 12/24/2023, 12/20/2022, 12/18/2021 Bilateral CC and MLO views with tomosynthesis and synthetic mammography submitted. Computer aided detection analyzed. Breast composition: There are scattered areas of fibroglandular density. No suspicious masses, microcalcifications or architectural distortion. Stable asymmetries in the anterior breast. MM/MM scr BI tomosynthesis [id number] IMPRESSION: BI-RADS: 1 - Negative. FOLLOW UP: 1 Year Follow-up
== END 2024-12-24 09:39 | disposition home or self-care (01) ==
LOC: RAD 09:40
PROVIDERS: PCP Family Medicine; Visit Provider Family Medicine
DX: Z12.31 Encounter for screening mammogram for malignant neoplasm of breast (principal); R92.323 Mammographic fibroglandular density, bilateral breasts; N64.89 Other specified disorders of breast
CPT/HCPCS: 77063; 77067

== ENCOUNTER → 2025-01-18 11:57 | Outpatient (BNVA) | payer MEDICARE, BC, SELFPAY | PROVIDERS: PCP Family Medicine; Referring Provider Family Medicine; Visit Provider Specialist | DX: G57.90 Unspecified mononeuropathy of unspecified lower limb (principal); R20.2 Paresthesia of skin; M25.551 Pain in right hip; R20.0 Anesthesia of skin | CPT/HCPCS: 95909 ==

== ENCOUNTER → 2025-01-20 14:12 | Outpatient (BNVA) | payer MEDICARE, BC, SELFPAY | PROVIDERS: PCP Family Medicine; Visit Provider Orthopaedic Surgery | DX: M54.17 Radiculopathy, lumbosacral region (principal); M48.061 Spinal stenosis, lumbar region without neurogenic claudication; M48.062 Spinal stenosis, lumbar region with neurogenic claudication | CPT/HCPCS: 72110; 99213 ==

== ENCOUNTER 2025-02-09 08:41 | Outpatient (CLI) | payer MEDICARE, BC, SELFPAY ==
--- NOTE | 2025-02-09 08:45 | MR_ITS ---
WS: [id number] MRI LUMBAR SPINE NONCONTRAST HISTORY: Back pain, bilateral leg numbness. Prior lumbar spine surgery. COMPARISON: None available. TECHNIQUE: Sagittal and axial multisequence imaging is submitted. Small central disc protrusions at C4-5, C5-6 and C6-7. Small central disc protrusion at T1-2. Posterior alignment is normal. Severe disc space narrowing at L5-S1. Benign hemangioma at L3 and L5. Conus terminates normally at L1-2 disc level. L1-L2: Diffuse annular disc bulging with ligamentum flavum and facet arthritis. There is a small central disc protrusion. Very mild bilateral foraminal stenosis. L2-L3: Mild annular disc bulging, osteophytic ridging and facet arthritis. Mild subarticular recess narrowing with mild RIGHT and moderate LEFT foraminal stenosis. L3-L4: Diffuse annular disc bulging with moderate ligamentum flavum and facet arthritis. Trefoil appearance of the thecal sac. Moderate central, bilateral subarticular recess and mild bilateral foraminal stenosis. There is mild contact on the L3 and L4 nerve roots. L4-L5: Diffuse annular disc bulging with a central disc protrusion. Moderate ligamentum flavum and facet arthritis. Disc osteophyte disease extend into the foramina. Moderate to severe central, bilateral subarticular recess and LEFT foraminal stenosis. Mild RIGHT foraminal stenosis. L5-S1: Mild disc bulging. No central stenosis. RIGHT hemilaminectomy defect. Moderate bilateral foraminal stenosis. Small osteophytes contact the exiting L5 nerve roots. Paravertebral soft tissues are normal. MR/MR lumbar spine wo con* [id number] IMPRESSION: 1. Moderate to severe central, bilateral subarticular recess and LEFT foramina l stenosis at L4-5. Mild RIGHT foraminal stenosis. 2. Moderate central, bilateral subarticular recess and mild foraminal stenosis at L3-4. There is very mild disc contact on the L3 and L4 nerve roots. 3. Moderate bilateral foraminal stenosis at L5-S1. Osteophytes in contact with the exiting L5 nerve roots. 4. Small central disc protrusion at L1-2 with mild foraminal stenosis. 5. Moderate LEFT foraminal stenosis at L2-3 with mild RIGHT foraminal stenosis and subarticular recess narrowing. 6. Prior RIGHT hemilaminectomy defect at L5-S1.
== END 2025-02-09 08:42 | disposition home or self-care (01) ==
LOC: RAD 08:43
PROVIDERS: PCP Family Medicine; Visit Provider Orthopaedic Surgery
DX: M48.061 Spinal stenosis, lumbar region without neurogenic claudication (principal); M51.362 Other intervertebral disc degeneration, lumbar region with discogenic back pain and lower extremity pain; M51.372 Other intervertebral disc degeneration, lumbosacral region with discogenic back pain and lower extremity pain; M47.816 Spondylosis without myelopathy or radiculopathy, lumbar region; M48.07 Spinal stenosis, lumbosacral region; M25.78 Osteophyte, vertebrae
CPT/HCPCS: 72148